=== PATIENT | female | born 1995 | race Two or more races ===

== ENCOUNTER 2024-11-23 07:16 | Inpatient (IN) | payer MEDICAID, OTHER ==
[~2024-11-23] VITALS: Ht 154.9 cm; Wt 90.0 kg
--- NOTE | 2024-11-23 07:38 | ED.PDOC ---
GI ASSESSMENT HPI Comments This is a 29 year-old female, with a PMHX HTN and pre-DM, presents to the ED via wheelchair with a chief complaint of RUQ abdominal pain as of 0500 this morning. Patient states abdominal pain as 10/10, "sharp", radiating to back, with no associated relieving factors. Patient states she has been taking Zepbound with Zofran for about X8 months for diagnosed pre-DM. Patient reports no previous history of abdominal pain and further denies associated symptoms of N/V/D, fever, chills, migraine, dizziness, or dysuria. Chief Complaint: Abdominal Pain Time Seen by MD: 07:25 Reviewed Notes: Medications, Allergies Allergies: Coded Allergies: Metoclopramide (Verified Allergy, Unknown, 11/23/24) Information Source: Patient Mode of Arrival: Wheelchair Timing: Hours Duration: Since onset Severity: Moderate Pain Location: RUQ Associated sign and symptoms: Abdominal Pain Past Medical History PAST MEDICAL HISTORY: DM, HTN Surgical History: Denies all surgeries JIRA ADMINISTRATOR History: No Pertinent JIRA ADMINISTRATOR History Family History Family History: Reviewed,noncontributory to illness, No family hx of Cancer, No family hx of DM, No family hx of Heart timmy, No family hx of HTN, No family hx ofKidney timmy, No family hx of Liver timmy, No family hx of Lung timmy, No family hx of Stroke Social History Smoker: Non-Smoker Alcohol: Denies ETOH Use Drugs: Denies Drug Use Lives In: Home Constitutional: denies: chills, diaphoresis, fatigue, fever, malaise, sweats, weakness, others EENTM: denies: blurred vision, double vision, ear bleeding, ear discharge, ear drainage, ear pain, ear ringing, eye pain, eye redness, hearing loss, mouth veronika n, mouth swelling, nasal discharge, nose bleeding, nose congestion, nose pain, photophobia, tearing, throat pain, throat swelling, voice changes, others Respiratory: denies: cough, hemoptysis, orthopnea, SOB at rest, shortness of breath, SOB with excertion, stridor, wheezing, others Cardiovascular: denies: chest pain, dizzy spells, diaphoresis, Dyspnea on exertion, edema, irregular heart beat, left arm pain, lightheadedness, palpitations, PND, syncope, others Gastrointestinal: reports: abdominal pain; denies: abdomen distended, blood streaked bowels, constipated, diarrhea, dysphagia, difficulty swallowing, hematemesis, melena, nausea, poor appetite, poor fluid intake, rectal bleeding, rectal pain, vomiting, others Genitourinary: denies: abnormal vagina bleeding, burning, dyspareunia, dysuria, flank pain, frequency, hematuria, incontinence, pain, , vagina discharge, urgency, others Neurological: denies: dizziness, fainting, headache, left sided numbness, left sided weakness, numbness, paresthesia, pre-existing deficit, right sided numbness, right sided weakness, seizure, speech problems, tingling, tremors, weakness, others Musculoskeletal: denies: back pain, gout, joint pain, joint swelling, muscle pain, muscle stiffness, neck pain, others Integumetry: denies: bruises, change in color, change in hair/nails, dryness, laceration, lesions, lumps, rash, wounds, others Allergic/Immunocompromised: denies: Difficulty Healing, Frequent Infections, Hives, Itching, others Hematologic/Lymphatic: denies: anemia, blood clots, easy bleeding, easy bruisin g, swollen glands, others Endocrine: denies: excessive hunger, excessive sweating, excessive thirst, excessive urination, flushing, intolerance to cold, intolerance to heat, unexplained weight gain, unexplained weight loss, others Psychiatric: denies: anxiety, bipolar disorder, depression, hopeless, panic disorder, schizophrenia, sleepless, suicidal, others All Other Systems: Reviewed and Negative Physical Exam General Appearance: Moderate Distress HEENT: Normal ENT Inspection, Pharynx Normal, TMs Normal Neck: Full Range of Motion, Non-Tender, Normal, Normal Inspection Respiratory: Chest Non-Tender, Lungs Clear, No Accessory Muscle Use, No Respiratory Distress, Normal Breath Sounds Cardiovascular: No Edema, No JVD, No Murmur, No Gallop, Normal Peripheral Pulses, Regular Rate/Rhythm Breast Exam: Deferred Gastrointestinal: No Organomegaly, Non Tender, No Pulsatile Mass, Normal Bowel Sounds, Soft Genitalia: Deferred Pelvic: Deferred Rectal: Deferred Extremities: No calf tenderness, Normal capillary refill, Normal inspection, Normal range of motion, Non-tender, No pedal edema Musculoskeletal : Apperance: Normal Neurologic: Alert, charge master analyst II-XII nml as Tested, No Motor Deficits, Normal Affect, Normal Mood, No Sensory Deficits Cerebellar Function: NOT DONE Reflexes: NOT DONE Skin: Dry, Normal Color, Warm Peripheral Pulses: 3+ Radial (R), 3+ Radial (L) Lymphatic: No Adenopathy Was a procedure done? Was a procedure done?: No GI differential Dx Differential Diagnosis: Constipation, Diverticular disease, Esophagitis, Gastritis/PUD, Gastroenteritis, Inflammatory BD, Pancreatitis, Dehydration, Diabetes/ DKA, Food Poisoning, , Bacterial, Parasitic, Viral X-Ray, Labs, Meds, VS Vital Signs Date Time Temp Pulse Resp B/P (MAP) Pulse Ox O2 Delivery O2 Flow Rate FiO2 11/23/24 07:19 98.2 99 18 111/67 100 98.2 Patient alert. Complaining of abdominal pain. Vitals stable. Answering questions. She does take weight loss medication. Establish intravenous access. Was given fluids. Was given morphine. Was given Zofran. Explained to the patient. Continue monitoring. Time of 1ST Reevaluation: 08:37 Reevaluation 1ST: Unchanged Patient Education/Counseling: Diagnosis, Treatment Family Education/Counseling: Diagnosis, Treatment SEPSIS Sepsis Screen Date sepsis recognized/suspect: Nov 23, 2024 Time Sepsis recognized/suspect: 717 Recent Procedure: No On Antibiotic Therapy: No Respiratory Rate >20: No Heart Rate >90: Yes Temp<36 C (96.8 F) or >38.3 C: No SBP <90 or MAP <65 mmHG: No New Acute Mental Status Change: No Is the patient on CPAP, BIPAP,: No Physician Orders Complete Blood Count (11/23/24 07:34) Urinalysis (11/23/24 07:34) Basic Metabolic Panel (11/23/24 07:34) Lipase (11/23/24 07:34) Bilirubin, Total (11/23/24 07:34) Morphine Sulfate Injection (11/23/24 07:45) Ondansetron Hcl (Zofran) (11/23/24 07:45) Sodium Chloride 0.9% (11/23/24 07:45) Vital Signs Date Time Temp Pulse Resp B/P (MAP) Pulse Ox O2 Delivery O2 Flow Rate FiO2 11/23/24 07:19 98.2 99 18 111/67 100 98.2 Departure 1 Departure Time of Disposition: 07:40 Impression: Primary Impression: Acute abdominal pain Disposition: ADMITTED INPATIENT Admit to: Med Surg Condition: Guarded Critical Care Note Critical Care Time?: No Stability Stability form required: No Heart Score Heart Score: Heart Score Response (Comments) Value History N/A 0 EKG N/A 0 Age N/A 0 Risk Factors N/A 0 Troponin N/A 0 Total 0 I personally scribed for RAJINDER BAEZ MD ([email or web address]) on 11/23/24 at 07:37. Electronically submitted by Deborah Rincon ([facility]). RAJINDER BAEZ MD Nov 23, 2024 07:37
[2024-11-23 08:07] LABS: Hematocrit 40.9 % (36.0-46.0); Hemoglobin 13.8 g/dL (12.2-16.2); Mean Corpuscular Hemoglobin 30.9 pg (28.0-32.0); Mean Corpuscular Volume 91.8 fL (80.0-100.0); Nucleated Red Blood Cells % 0.1 %
[2024-11-23 08:15] LABS: Chloride 106 mmol/L (98-107); Potassium 3.6 mmol/L (3.5-5.1); Sodium 140 mmol/L (136-145)
[2024-11-23 08:16] LABS: Anion Gap 10 (5-15); Calcium 9.2 mg/dL (8.7-10.4); Carbon Dioxide 24 mmol/L (20-31)
[2024-11-23 08:21] LABS: BUN/Creatinine Ratio 13.2 (10.0-20.0); Blood Urea Nitrogen 10 mg/dL (9-23)
[2024-11-23 08:22] LABS: Glucose 111 mg/dL (74-106)
[2024-11-23 08:23] LABS: Bilirubin, Total 0.6 mg/dL (0.2-1.0)
[2024-11-23 08:40] VITALS: PULSE 84; RESP 19; O2SAT 95
[2024-11-23] MEDS: ONDANSETRON HCL 4 MG/2 ML VIAL IV ONE (08:48)
[2024-11-23] MEDS: MORPHINE SULFATE 4 MG/ML SYR/VIAL IV ONE (08:49)
[2024-11-23] MEDS: SODIUM CHLORIDE 0.9% 1,000 ML IV ONE ×2 (08:51→10:53)
[2024-11-23 09:09] LABS: Lipase 42 U/L (12-53)
--- NOTE | 2024-11-23 09:10 | DVH ---
Exam: CT CT AB PEL WO CON-NO ORAL OR IV History: colitis Comparison Study: None Technique: Multidetector spiral CT of the abdomen was performed from lung bases to pubic symphysis. Imaging was performed without IV contrast. Axial, coronal and sagittal multiplanar reformats were ob tained from the axial data set by the technologist. Radiation Dose : 1. Abdomen/Pelvis: CTDIvol 21.23 mGy, DLP 21.23 mGy*cm. Findings: Evaluation of solid organs is limited due to lack of intravenous contrast use. Lung Bases: No acute or significant lung base finding. Normal heart size. No pleural or pericardial effusion. Liver: The liver is normal in size. No focal lesions. Gallbladder and Biliary Tree: Unremarkable Spleen: Unremarkable Pancreas: The pancreas is grossly normal in appearance. Adrenal Glands: Unremarkable Kidneys: Kidneys are grossly normal without calculi or hydronephrosis. Bladder: Grossly unremarkable for degree of distention. Bowel: The stomach is grossly normal in appearance. Small bowel and colon are normal in caliber and d istribution. The appendix is normal. Ascites: Absent Lymphadenopathy: No mesenteric, retroperitoneal or periportal lymphadenopathy. Abdominal Wall and Mesentery: Unremarkable. Vasculature: The visualized abdominal aorta is normal in size and caliber. Evaluation of abdominal a nd pelvic vessels is limited due to lack of intravenous contrast. Pelvic Organs: Unremarkable Musculoskeletal: No aggressive focal bony lesions, acute fractures or dislocation. IMPRESSION: 1. No acute abdominal or pelvic findings. Radiation optimization: All CT scans at this facility use at least one of these dose optimization farnaz hniques: automated exposure control mA and/or kV adjustment per patient size (includes targeted exam s where dose is matched to clinical indication) or iterative reconstruction.
[2024-11-23] MEDS ORDERED: DOCUSATE SOD 100 MG CAP PO PRN (10:00)
[2024-11-23] MEDS ORDERED: MORPHINE SULFATE INJ 2 MG/ml SYRG IV PRN (10:00)
[2024-11-23] MEDS ORDERED: METOCLOPRAMIDE HCL 5MG/ml INJ 2ml VIAL IV PRN (10:00)
[2024-11-23] MEDS ORDERED: ACETAMINOPHEN 325 MG TAB PO PRN (10:00)
[2024-11-23] MEDS ORDERED: ONDANSETRON HCL 4 MG/2 ML VIAL IV PRN (10:00)
[2024-11-23] MEDS: cefTRIAXone 1GM/50ML D5W 50 ML IV ONE (10:53)
--- NOTE | 2024-11-23 10:53 | DVH ---
EXAM DESCRIPTION: US GALLBLADDER CLINICAL HISTORY: pain COMPARISON: Same day CT abdomen pelvis TECHNIQUE: Using real-time ultrasonography multiple images of the abdomen were obtained. FINDINGS: The liver measures 15.1 cm. No focal liver masses. The liver echongenicity is within normal limits. The pancreas is obscured by shadowing bowel gas. Stones and sludge in the gallbladder. No gallbladder wall thickening. No pericholecystic fluid. Negat sara sonographic Salas sign. The common bile duct measures 4 mm in diameter. There is no free intraperitoneal fluid. The right kidney measures 9.2cm. No right renal calculi or hydronephrosis. IMPRESSION: 1. Cholelithiasis without evidence of acute cholecystitis.
[2024-11-23 10:57] LABS: Urine Protein, UAD Negative (Negative)
--- NOTE | 2024-11-23 11:19 | DVHHP2 ---
History of Present Illness Reason for Visit: Abdominal pain History of Present Illness Bri Garcia is a 29-year-old female with past medical history of pre-diabetes for which she takes and hypertension during that she is not currently taking any medications for, who came to the hospital for abdominal pain. Patient states she woke up about 0500 with RUQ abdominal pain that radiates around her back. She also began experiencing nausea and vomiting. She states she last ate last night about 2300 spicy Dutch food. Endocrine: Diabetes (Pre- diabetes) Past Surgical History: None Family History: None Smoke: No ALCOHOL: none Drugs: None Lives: with Family Review of Systems Constitutional: No: Fever, Chills, Sweats, Weakness, Malaise, Other Eyes: No: Pain, Vision change, Conjunctivae inflammation, Eyelid inflammation, Other, Redness ENT: No: Ear pain, Ear discharge, Nose pain, Nose discharge, Nose congestion, Mouth pain, Mouth swelling, Throat pain, Throat swelling, Other Respiratory: No: Cough, Dry, Shortness of breath, SOB with excertion, Wheezing, Hemoptysis, Pleuritic Pain, Sputum, Wheezing, Other Gastrointestinal: Nausea, Vomiting, Abdominal Pain (RUQ radiates to back); No: Diarrhea, Constipation, Melena, Hematochezia, Other Genitourinary: No Dysuria, No Frequency, No Incontinence, No Hematuria, No Retention, No Other Musculoskeletal: No: other, neck pain, shoulder pain, arm pain, back pain, hand pain, leg pain, foot pain Skin: No: Rash, Lesions, Jaundice, Bruising, Other Neurological: No: Weakness, Numbness, Incoordination, Change in speech, Confusion, Seizures, Other Allergies: Coded Allergies: Metoclopramide (Verified Allergy, Unknown, 11/23/24) Exam Vital Signs Vital Signs Date Time Temp Pulse Resp B/P (MAP) Pulse Ox O2 Delivery O2 Flow Rate FiO2 11/23/24 09:21 93 14 108/70 11/23/24 08:52 98.0 99 98.0 11/23/24 08:40 Room Air* 0 21 General Appearance: Alert, Oriented X3, Cooperative, mild distress HEENT: Atraumatic, PERRLA Respiratory: Clear to auscultation, Normal air movement Cardiovascular: Regular rate, Normal S1, Normal S2, No murmurs Abdominal: Normal bowel sounds, Soft, Other (tender on plapitation) Extremities: No clubbing, No cyanosis, No edema, Normal pulses, No tenderness/swelling Skin: No rashes, No breakdown, No significant lesion Neuro: Normal gait, Normal speech, Strength at 5/5 X4 ext Psych/Mental Status: Mental status NL, Mood NL Labs/Xrays Labs Test 11/23/24 07:50 Range/Units White Blood Count 12.7 H 4.4-10.8 10^3/uL Red Blood Count 4.46 4.0-5.20 10^6/uL Hemoglobin 13.8 12.2-16.2 g/dL Hematocrit 40.9 36.0-46.0 % Mean Corpuscular Volume 91.8 80.0-100.0 fL Mean Corpuscular Hemoglobin 30.9 28.0-32.0 pg Mean Corpuscular Hemoglobin Concent 33.6 32.0-36.0 g/dL Red Cell Distribution Width 13.6 11.8-14.3 % Platelet Count 321 140-450 10^3/uL Mean Platelet Volume 9.7 6.9-10.8 fL Neutrophils (%) (Auto) 81.3 H 37.0-80.0 % Lymphocytes (%) (Auto) 10.0 10.0-50.0 % Monocytes (%) (Auto) 7.2 0.0-12.0 % Eosinophils (%) (Auto) 1.2 0.0-7.0 % Basophils (%) (Auto) 0.3 0.0-2.0 % Neutrophils # (Auto) 10.3 H 1.6-8.6 10 ^3/uL Lymphocytes # (Auto) 1.3 0.4-5.4 10 ^3/uL Monocytes # (Auto) 0.9 0-1.3 10 ^3/uL Eosinophils # (Auto) 0.2 0-0.8 10 ^3/uL Basophils # (Auto) 0 0-0.2 10 ^3/uL Nucleated Red Blood Cells 0.1 % Sodium Level 140 136-145 mmol/L Potassium Level 3.6 3.5-5.1 mmol/L Chloride Level 106 98-107 mmol/L Carbon Dioxide Level 24 20-31 mmol/L Anion Gap 10 5-15 Blood Urea Nitrogen 10 9-23 mg/dL Creatinine 0.76 0.550-1.02 mg/dL Glomerular Filtration Rate Calc 107 >90 mL/min BUN/Creatinine Ratio 13.2 10.0-20.0 Serum Glucose 111 H 74-106 mg/dL Calcium Level 9.2 8.7-10.4 mg/dL Total Bilirubin 0.6 0.2-1.0 mg/dL Lipase 42 12-53 U/L Exam: CT CT AB PEL WO CON-NO ORAL OR IV Findings: Evaluation of solid organs is limited due to lack of intravenous contrast use. Lung Bases: No acute or significant lung base finding. Normal heart size. No pleural or pericardial effusion. Liver: The liver is normal in size. No focal lesions. Gallbladder and Biliary Tree: Unremarkable Spleen: Unremarkable Pancreas: The pancreas is grossly normal in appearance. Adrenal Glands: Unremarkable Kidneys: Kidneys are grossly normal without calculi or hydronephrosis. Bladder: Grossly unremarkable for degree of distention. Bowel: The stomach is grossly normal in appearance. Small bowel and colon are normal in caliber and distribution. The appendix is normal. Ascites: Absent Lymphadenopathy: No mesenteric, retroperitoneal or periportal lymphadenopathy. Abdominal Wall and Mesentery: Unremarkable. Vasculature: The visualized abdominal aorta is normal in size and caliber. Evaluation of abdominal and pelvic vessels is limited due to lack of intravenous contrast. Pelvic Organs: Unremarkable Musculoskeletal: No aggressive focal bony lesions, acute fractures or dislocation. IMPRESSION: 1. No acute abdominal or pelvic findings. SEPSIS Sepsis Screen Date sepsis recognized/suspect: Nov 23, 2024 Time Sepsis recognized/suspect: 0852 Recent Procedure: No On Antibiotic Therapy: No Respiratory Rate >20: No Heart Rate >90: No Temp<36 C (96.8 F) or >38.3 C: No SBP <90 or MAP <65 mmHG: No New Acute Mental Status Change: No Is the patient on CPAP, BIPAP,: No Physician Orders Urinalysis (11/23/24 07:34) Ct Ab Pel Wo Con-No Oral Or Iv (11/23/24 08:26) Metronidazole Ivpb Flagyl (11/23/24 14:00) Metoclopramide Injection (Reglan Injecti (11/23/24 10:00) Ceftriaxone Ivpb Rocephin (11/24/24 09:00) Ceftriaxone Ivpb Rocephin (11/23/24 10:00) NS (11/23/24 10:00) Test, Urine (11/23/24 09:50) Admit (11/23/24 09:50) Code Status (11/23/24 09:50) 2 Gm Sodium Diet (11/23/24 Lunch) Hydrocodone-Acet 5/325mg Tab ([place] 5/32 (11/23/24 10:00) Ondansetron Hcl (Zofran) (11/23/24 10:00) Docusate Sodium Capsule (Colace Capsule) (11/23/24 10:00) Complete Blood Count (11/24/24 04:00) Comprehensive Metabolic Panel (11/24/24 04:00) Condition: Serious (11/23/24 09:50) Acetaminophen Tablet (Tylenol Tablet) (11/23/24 10:00) Morphine Sulfate Injection (11/23/24 10:00) Vital Signs Date Time Temp Pulse Resp B/P (MAP) Pulse Ox O2 Delivery O2 Flow Rate FiO2 11/23/24 09:21 93 14 108/70 11/23/24 08:52 98.0 95 18 112/68 (83) 99 98.0 11/23/24 08:49 95 14 112/68 11/23/24 08:40 84 19 95 Room Air* 0 21 11/23/24 07:19 98.2 99 18 111/67 100 98.2 Laboratory Tests Test 11/23/24 07:50 White Blood Count 12.7 10^3/uL (4.4-10.8) H Medications Medications Dose Ordered Sig/Denia Route Start Time Stop Time Status Last Admin Dose Admin Morphine Sulfate 4 mg ONCE ONCE IV 11/23/24 07:45 11/23/24 07:46 DC 11/23/24 08:49 4 MG Ondansetron HCl 4 mg ONCE ONCE IV 11/23/24 07:45 11/23/24 07:46 DC 11/23/24 08:48 4 MG Sodium Chloride 1,000 ml @ 1,000 mls/hr Q1H ONCE IV 11/23/24 07:45 11/23/24 08:44 DC 11/23/24 08:51 1,000 MLS/HR Assessment/Plan Assessment/Plan Assessment: Possible gastritis, Leukocytosis, Intractable abdominal pain, Intractable nausea and vomiting, Plan: Admit to Med-Surg, IV antibiotics, IV hydration, Gallbladder ultrasound, PRN antiemetics, Possible HIDA scan, Plan discussed with: Patient, Spouse My Orders Orders - JAYE SERRATO Procedure Category Date Status Time Metronidazole Ivpb PHA 11/23/24 Verified Flagyl 14:00 Metoclopramide PHA 11/23/24 Verified Injection (Reglan 10:00 Ceftriaxone Ivpb PHA 11/24/24 Verified Rocephin 09:00 Ceftriaxone Ivpb PHA 11/23/24 Verified Rocephin 10:00 NS PHA 11/23/24 Verified 10:00 Test, Urine LAB 11/23/24 Verified 09:50 Admit ADMIT 11/23/24 Verified 09:50 Code Status CODE 11/23/24 Verified 09:50 2 Gm Sodium Diet DIET 11/23/24 Verified Lunch Hydrocodone-Acet PHA 11/23/24 Verified 5/325mg Tab ([place] 10:00 Ondansetron Hcl PHA 11/23/24 Verified (Zofran) 10:00 Docusate Sodium PHA 11/23/24 Verified Capsule (Colace 10:00 Complete Blood Count LAB 11/24/24 Verified 04:00 Comprehensive LAB 11/24/24 Verified Metabolic Panel 04:00 Condition: Serious ALEXANDER 11/23/24 Verified 09:50 Acetaminophen Tablet PHA 11/23/24 Verified (Tylenol Tablet) 10:00 Morphine Sulfate PHA 11/23/24 Verified Injection 10:00 Date of Service: Nov 23, 2024 Billing Provider: JAYE SERRATO Common Visit Codes: [id number] INP/OBS CARE (MOD) JAYE SERRATO Nov 23, 2024 11:19
[2024-11-23] MEDS: HYDROcodone-ACET 5/325MG TAB PO PRN (12:00)
[2024-11-23 13:30] VITALS: BP 113/85; PULSE 77; RESP 15; TEMP 98; O2SAT 98
[2024-11-24] MEDS ORDERED: cefTRIAXone 1GM/50ML D5W 50 ML IV SCH (09:00)
== END 2024-11-23 15:39 | disposition left against medical advice (07) ==
LOC: ER 07:16 → OVERFLOW 09:50
PROVIDERS: ADMIT Nurse Practitioner Family; ATTEND Nurse Practitioner Family
DX: K80.20 Calculus of gallbladder without cholecystitis without obstruction (principal); D72.829 Elevated white blood cell count, unspecified; K29.70 Gastritis, unspecified, without bleeding; I10 Essential (primary) hypertension; Z53.21 Procedure and treatment not carried out due to patient leaving prior to being seen by health care provider; Z88.8 Allergy status to other drugs, medicaments and biological substances
CPT/HCPCS: 36415; 74176; 76705; 80048; 81001; 81025; 82247; 83690; 85025; 96361; 96365; 96367; 96375; G0378; J2405; J3490

== ENCOUNTER 2025-02-20 16:01 | Emergency (ER) | payer MEDICAID ==
[~2025-02-20] VITALS: Ht 180.3 cm; Wt 81.8 kg
--- NOTE | 2025-02-20 16:48 | DVH ---
ULTRASOUND ABDOMEN, LIMITED RIGHT UPPER QUADRANT: REASON FOR EXAM: RUQ PAIN TECHNIQUE: Real-time sector scans in the transverse and longitudinal planes were obtained through th e right upper quadrant of the abdomen. FINDINGS: The liver is of normal size and contour. The liver is echogenic. There is predominantly he patopetal flow in the portal vein. There is no intrahepatic biliary ductal dilatation. The common b ile duct is not seen. There are a few mobile gallstones. There is no gallbladder wall thickening no r pericholecystic fluid. There is no sonographic Salas's sign. The pancreas is obscured by bowel gas. The right kidney measures 11.7 cm. No hydronephrosis or nephrolithiasis is identified. There is no evidence of right renal mass or cyst. The visualized portions of the abdominal aorta demonstrate no evidence of aneurysmal dilatation. The visualized inferior vena cava is unremarkable. There is no free fluid identified in the right upper quadrant. IMPRESSION: Cholelithiasis without signs of acute cholecystitis. No sonographic Salas's sign. Diffusely echogenic liver parenchyma. This may be secondary to steatosis or another diffuse hepatic process. Correlate clinically and with liver function tests.
[2025-02-20 16:51] VITALS: PULSE 70; RESP 18; O2SAT 97
[2025-02-20 16:57] LABS: Hematocrit 36.2 % (36.0-46.0); Hemoglobin 12.0 g/dL (12.2-16.2); Mean Corpuscular Hemoglobin 30.6 pg (28.0-32.0); Mean Corpuscular Volume 92.5 fL (80.0-100.0); Nucleated Red Blood Cells % 0.0 %
[2025-02-20] MEDS: SODIUM CHLORIDE 0.9% 1,000 ML IV ONE (17:08)
[2025-02-20 17:13] LABS: Alanine Aminotransferase 38 U/L (7-40); Alkaline Phosphatase 81 U/L (46-116); Anion Gap 7 (5-15); Carbon Dioxide 26 mmol/L (20-31); Glucose 90 mg/dL (74-106); Lipase 39 U/L (12-53); Potassium 3.6 mmol/L (3.5-5.1); Sodium 141 mmol/L (136-145); Total Protein 6.6 g/dL (5.7-8.2)
[2025-02-20 17:14] LABS: Albumin 3.8 g/dL (3.2-4.8); BUN/Creatinine Ratio 12.7 (10.0-20.0); Bilirubin, Total 0.5 mg/dL (0.2-1.0)
[2025-02-20 17:15] LABS: Blood Urea Nitrogen 7 mg/dL (9-23); Calcium 8.7 mg/dL (8.7-10.4); Chloride 108 mmol/L (98-107)
[2025-02-20] MEDS: ONDANSETRON HCL 4 MG/2 ML VIAL IV ONE (17:57)
[2025-02-20] MEDS: fentaNYL CITRATE 100 MCG/2 ML VL IV ONE ×2 (17:57→21:08)
[2025-02-20 19:30] VITALS: TEMP 98.6
[2025-02-20] MEDS: HYDROcodone-ACET 5/325MG TAB PO ONE (19:33)
[2025-02-20 19:35] LABS: Urine Amorphous Crystal FEW /hpf (None Seen); Urine Protein, UAD Negative (Negative)
[2025-02-20] MEDS: PANTOPRAZOLE 40 MG TAB PO ONE (19:52)
[2025-02-20] MEDS: SUCRALFATE 1 GM TAB PO ONE (19:52)
[2025-02-20] MEDS: LIDOCAINE VISCOUS 2% 15ML UD PO ONE (19:52)
[2025-02-20 20:54] VITALS: PULSE 61; RESP 13; O2SAT 100
[2025-02-20] MEDS ORDERED: ZOFR4T PO (22:02)
[2025-02-20] MEDS ORDERED: NITR-87 PO (22:02)
[2025-02-20 22:40] VITALS: BP 110/70; PULSE 72; RESP 16; O2SAT 95
--- NOTE | 2025-02-21 11:20 | ED.PDOC ---
GI ASSESSMENT HPI Comments HPI: This is a 29 year old female MEGAN presenting to the ED with chief complaint of abdominal pain. Patient reports that she has been experiencing RUQ abdominal pain since 1.5 hours ago with associated brown diarrhea yesterday. Patient relays that she had only eaten a croissant today. Patient states that she has history of gallstones 3 months ago, but no scheduled surgery is noted. EMS notes that the patient was provided 50mcg of Fentanyl, IV fluids, and Zofran en route to the ED. EMS reports patient had a BP of 90/50 after Fentanyl was given. Patient denies any nausea, vomiting, chest pain, SOB, fever, or chills. Past Medical History: DM, HTN, Gallstones Past Surgical History: None Social History: Denies ETOH, smoking, or drug use. Medications: Reviewed. Allergies: Metoclopramide [place]: RUQ PAIN, N NO VOMIT H/O GALLSTONES. Lidocaine patches, waiting for GI consultation. Denies HPI: Poor Historian. REVIEW OF SYSTEMS: CONSTITUTIONAL: Denies acute: fever, diaphoresis, chills, HEAD: Denies acute: headache, photophobia Eyes: Denies acute: Double vision, vision loss, eye pain, eye discharge. EARS: Denies acute: tinnitus, hearing loss, ear discharge, ear pain, THROAT: Denies acute: sore throat, swelling, difficulty swallowing , pain with swallowing, change in voice. NECK: Denies acute: neck pain, neck swelling, stiff neck. HEART: Denies acute : chest pain, palpitations, LUNGS: Denies acute: SOB, wheezing, cough, hemoptysis ABDOMEN: Denies acute: Vomiting, diarrhea, melena , hematemesis, hematochezia SKIN: Denies acute: rash, redness, lesions, itchiness. EXTREMITIES: Denies acute: calf pain, numbness, tingling, weakness, denies pain in extremity. Denies acute: Low back pain. Neuro: Denies acute: focal neurological deficit, motor or sensory focal neurological deficit, tremors, seizure like activity, confusion, dizziness, change in mental status, loss of bowel or bladder function, cauda equina like symptoms. : Denies acute: dysuria, hematuria, flank pain, increase in urinary frequency. PSYCH: Denies acute: hallucination, suicidal ideation, homicidal ideation. FEMALE: Denies acute: abnormal vaginal bleeding, foul odor, unusual discharge. PHYSICAL EXAM: General: ----moderate----acute distress, awake and alert. Head: normocephalic, atraumatic. Neck: supple, trachea is midline, no swelling. Throat: Normal phonation. Eyes:, no erythema, no purulent discharge, no proptosis, no icterus. Heart: regular rate, regular rhythm, no significant murmur appreciated. Lungs: no apparent respiratory distress, Able to speak in full sentences. No wheezing, no rhonchi, no crackles. No stridors Clear to auscultation bilaterally. Abdomen: Right upper quadrant tender to palpation, non distended, soft, no guarding, no rebound, + bowel sounds. Neuro: Awake, Alert, oriented to name, self, situation, follows commands GCS=15. Speech is normal. Skin: no petechia, no purpura, no cyanosis, non-pale, not jaundice. Lower extremities: --no - Pitting edema no deformity, no focal swelling, no calf TTP. Makes eye contact. moves all four extremities. Face: no apparent facial droop. ED COURSE: DISCLAIMER: This medical document was created using an electronic medical record system with voice recognition software and computerized dictation system. Although this document has been carefully reviewed, there might still be some phonetic and typographical errors. Occasional wrong-word or "sound-alike" substitutions may have occurred due to the inherent limitations of voice recognition software. These areas are purely typographical due to imperfections of the software programs and do not reflect any compromise in the patient's medical care. Please read the chart carefully and recognize, using context, where these substitutions have occurred. Chief Complaint: Abdominal Pain Time Seen by MD: 16:39 Reviewed Notes: Medications, Allergies Allergies: Coded Allergies: Metoclopramide (Verified Allergy, Unknown, 11/23/24) Home Meds Active Scripts Ondansetron Odt 4MG Tab (ZOFRAN PO) 4 Mg Tb, 4 MG PO Q8HPRN PRN for 3 Days, #9 TAB ODT TAB-DISSOLVE IN MOUTH, THEN SWALLOW Prov:ADOLPH ROJAS DO 02/20/25 Nitrofurantoin Monohydrate Mac (Macrobid) 100 Mg Cap, 100 MG PO BID for 7 Days, #14 CAP Prov:ADOLPH ROJAS DO 02/20/25 Information Source: Patient, Emergency Med Personnel Mode of Arrival: EMS Was a procedure done? Was a procedure done?: No GI differential Dx Differential Diagnosis: Other (DDX include Diverticulitis, colitis, gastroenteritis, acute abdomen, SBO, enteritis, constipation, volvulus, appen dicitis, Gallbladder disease, choledocolithiasis, ascending cholangitis, pancreatitis, intraAbdominal mass/neoplasm, hepatitis, UTI, pylonephritis, kidney stone, aneurysm, dissection, Inflammatory bowel disease, gastroparesis, ischemic bowel,,,,,,ovarian torsion, ovarian cyst/mass, tubo-ovarian abscess, , ectopic , PID, STD.) X-Ray, Labs, Meds, VS Vital Signs Date Time Temp Pulse Resp B/P (MAP) Pulse Ox O2 Delivery O2 Flow Rate FiO2 02/20/25 22:40 72 16 110/70 (83) 95 02/20/25 21:08 106/65 02/20/25 21:00 62 12 103/64 (77) 98 02/20/25 20:54 61 13 100 Room Air* 0 21 02/20/25 20:00 81 02/20/25 19:30 98.6 65 15 117/79 (92) 100 98.6 02/20/25 18:00 98.4 75 18 108/68 (81) 99 98.4 02/20/25 17:00 97 Room Air* 0 21 02/20/25 16:51 70 18 97 Room Air* 0 21 02/20/25 16:07 98.1 75 24 90/50 99 98.1 02/20/25 16:07 98.1 75 24 90/50 (63) 99 98.1 Lab Test 02/20/25 19:10 02/20/25 16:34 Range/Units Urine Color Colorless Yellow Urine Clarity Clear Clear Urine pH 7.0 5.0-9.0 Urine Specific [place] 1.007 1.001-1.035 Urine Protein Negative Negative Urine Ketones Negative Negative Urine Blood Negative Negative /uL Urine Nitrite Negative Negative Urine Bilirubin Negative Negative Urine Urobilinogen Normal Negative mg/dL Urine Leukocyte Esterase 2+ Negative /uL Urine RBC 1 0 - 4 /hpf Urine Microscopic WBC 4 0-5 /HPF Urine Squamous Epithelial Cells Few <5 /hpf Urine Amorphous Crystals Few None Seen /hpf Urine Bacteria Few H None Seen /hpf Urine Mucus Few None Seen Urine Glucose Normal Normal mg/dL White Blood Count 10.7 4.4-10.8 10^3/uL Red Blood Count 3.92 L 4.0-5.20 10^6/uL Hemoglobin 12.0 L 12.2-16.2 g/dL Hematocrit 36.2 36.0-46.0 % Mean Corpuscular Volume 92.5 80.0-100.0 fL Mean Corpuscular Hemoglobin 30.6 28.0-32.0 pg Mean Corpuscular Hemoglobin Concent 33.1 32.0-36.0 g/dL Red Cell Distribution Width 13.5 11.8-14.3 % Platelet Count 260 140-450 10^3/uL Mean Platelet Volume 9.8 6.9-10.8 fL Neutrophils (%) (Auto) 81.8 H 37.0-80.0 % Lymphocytes (%) (Auto) 8.7 L 10.0-50.0 % Monocytes (%) (Auto) 8.6 0.0-12.0 % Eosinophils (%) (Auto) 0.7 0.0-7.0 % Basophils (%) (Auto) 0.2 0.0-2.0 % Neutrophils # (Auto) 8.8 H 1.6-8.6 10 ^3/uL Lymphocytes # (Auto) 0.9 0.4-5.4 10 ^3/uL Monocytes # (Auto) 0.9 0-1.3 10 ^3/uL Eosinophils # (Auto) 0.1 0-0.8 10 ^3/uL Basophils # (Auto) 0 0-0.2 10 ^3/uL Nucleated Red Blood Cells 0.0 % Sodium Level 141 136-145 mmol/L Potassium Level 3.6 3.5-5.1 mmol/L Chloride Level 108 H 98-107 mmol/L Carbon Dioxide Level 26 20-31 mmol/L Anion Gap 7 5-15 Blood Urea Nitrogen 7 L 9-23 mg/dL Creatinine 0.55 0.550-1.02 mg/dL Glomerular Filtration Rate Calc 126 >90 mL/min BUN/Creatinine Ratio 12.7 10.0-20.0 Serum Glucose 90 74-106 mg/dL Lactic Acid Level 0.8 0.4-2.0 mmol/L Calcium Level 8.7 8.7-10.4 mg/dL Total Bilirubin 0.5 0.2-1.0 mg/dL Aspartate Amino Transferase (AST) 100 H 13-40 U/L Alanine Aminotransferase (ALT) 38 7-40 U/L Alkaline Phosphatase 81 46-116 U/L Total Protein 6.6 5.7-8.2 g/dL Albumin 3.8 3.2-4.8 g/dL Lipase 39 12-53 U/L Current Medications Medications (Trade) Dose Ordered Sig/Denia Route Start Time Stop Time Status Last Admin Sucralfate (Carafate Tab) 1 gm ONCE ONCE PO 02/20/25 19:45 02/20/25 19:46 DC 02/20/25 19:52 Pantoprazole Sodium (Protonix Tablet) 40 mg ONCE ONCE PO 02/20/25 19:45 02/20/25 19:46 DC 02/20/25 19:52 Lidocaine HCl (Xylocaine 2% Viscous) 10 ml ONCE ONCE PO 02/20/25 19:45 02/20/25 19:46 DC 02/20/25 19:52 Fentanyl Citrate 50 mcg ONCE ONCE IV 02/20/25 21:00 02/20/25 21:01 DC 02/20/25 21:08 [place] [address] Ph: [phone] DIAGNOSTIC IMAGING Diagnostic Imaging Report : [id number] Signed PATIENT: MELINDA CHAVIS RACCT: [id number] UNIT: [id number] : 1995 LOC: ER ROOM / BED: / AGE / SEX: 29 / F ADM STATUS: REG ER SERVICE [id number] ORDERING PHYSICIAN: ADOLPH ROJAS DO PROCEDURE(s): ABDL - ABDOMEN LIMITED REASON: RUQ PAIN ORDER NUMBER(s): [id number], ACCESSION NUMBER(s): [id number] ULTRASOUND ABDOMEN, LIMITED RIGHT UPPER QUADRANT: REASON FOR EXAM: RUQ PAIN TECHNIQUE: Real-time sector scans in the transverse and longitudinal planes were obtained through the right upper quadrant of the abdomen. FINDINGS: The liver is of normal size and contour. The liver is echogenic. There is predominantly hepatopetal flow in the portal vein. There is no intrahepatic biliary ductal dilatation. The common bile duct is not seen. There are a few mobile gallstones. There is no gallbladder wall thickening nor pericholecystic fluid. There is no sonographic Salas's sign. The pancreas is obscured by bowel gas. The right kidney measures 11.7 cm. No hydronephrosis or nephrolithiasis is identified. There is no evidence of right renal mass or cyst. The visualized portions of the abdominal aorta demonstrate no evidence of aneurysmal dilatation. The visualized inferior vena cava is unremarkable. There is no free fluid identified in the right upper quadrant. IMPRESSION: Cholelithiasis without signs of acute cholecystitis. No sonographic Salas's sign. Diffusely echogenic liver parenchyma. This may be secondary to steatosis or another diffuse hepatic process. Correlate clinically and with liver function tests. ATED BY: ORLANDO BROWN MD DICTATED DATE/TIME: 02/20/251644 SIGNED BY: ORLANDO BROWN MD SIGNED DATE/TIME: 02/20/251644 CC: Time of 1ST Reevaluation: 19:38 Reevaluation 1ST: Unchanged Time of 2ND Reevaluation: 19:01 Reevaluation 2ND: Improved Patient Education/Counseling: Diagnosis, Treatment Family Education/Counseling: No Family Present Comments MDM: patient presented with the above HPI.-abdominal pain----workup was initia tripp. patient was found with the above mentioned diagnosis. the following medications were ordered: please refer to order lists of meds and tests obtained by myself Dr. Rojas. Patient ED course and VS have been stabilized. Patient has been reassessed in the ED and remained in a stable condition. Pertinent incidental findings were discussed with the patient and/or family. Patient/family voices understanding and is agreeable with plan. Patient has been observed in the ED adequate length of time to insure improvement/stability. Escalation of care considered: Consideration of escalation to observation or admission Patient has a appointment coming up with the Gastroenterology. Patient was DISCHARGED home in a stable condition. All the reports of any imaging studies that were ordered by myself were reviewed by myself. Departure 1 Departure Time of Disposition: 17:08 Impression: Primary Impression: Cholelithiasis Additional Impressions: Abdominal pain UTI (urinary tract infection) Disposition: HOME / SELF CARE / HOMELESS Condition: Stable Additional Instructions: Additional instructions: Please read all instructions provided in this packet carefully. You MUST follow-up with your primary care/family doctor in 1 to 2 days. If you are unable to see your primary care/family doctor, please return to our emergency room for re-assessment and re-evaluation in 1 to 2 days. Return to the emergency room here in our facility or to the nearest ER [facility] if your symptoms change or worsen. CONSULTATIONS: you MUST Follow-up for consultation as soon as possible with: --gastroenterology in 1-2 days. Please call for appointment. You MUST call the consultants office yourself to make an appointment. You may need to arrange that through your insurance and/or your primary/family doctor. If you are unable to see the bi consultant in 1 to 2 days, you must return to our emergency room (or any other ER of your choice) for re-assessment and re-evaluation. Adequate fluid hydration. Although you have been discharged from the Emergency Department, this does not mean that you have a "clean bill of health". No definitive diagnosis for your symptoms has been made today. It is possible that you are in the process of developing a serious illness. This is why you must return to the ED without fail if any new or worsening symptoms develop. Avoid fatty greasy spicy food. Avoid caffeinated products. Avoid NSAIDs. Below is a copy of your radiological report for follow up: [place] [address] Ph: [phone] DIAGNOSTIC IMAGING Diagnostic Imaging Report : [id number] Signed PATIENT: MELINDA CHAVIS ACCT: [id number] UNIT: [id number] : 1995 LOC: ER ROOM / BED: / AGE / SEX: 29 / F ADM STATUS: REG ER SERVICE 1313 ORDERING PHYSICIAN: ADOLPH ROJAS DO PROCEDURE(s): ABDL - ABDOMEN LIMITED REASON: RUQ PAIN ORDER NUMBER(s): [id number], ACCESSION NUMBER(s): [id number] ULTRASOUND ABDOMEN, LIMITED RIGHT UPPER QUADRANT: REASON FOR EXAM: RUQ PAIN TECHNIQUE: Real-time sector scans in the transverse and longitudinal planes were obtained through the right upper quadrant of the abdomen. FINDINGS: The liver is of normal size and contour. The liver is echogenic. There is predominantly hepatopetal flow in the portal vein. There is no intrahepatic biliary ductal dilatation. The common bile duct is not seen. There are a few mobile gallstones. There is no gallbladder wall thickening nor pericholecystic fluid. There is no sonographic Salas's sign. The pancreas is obscured by bowel gas. The right kidney measures 11.7 cm. No hydronephrosis or nephrolithiasis is identified. There is no evidence of right renal mass or cyst. The visualized portions of the abdominal aorta demonstrate no evidence of aneurysmal dilatation. The visualized inferior vena cava is unremarkable. There is no free fluid identified in the right upper quadrant. IMPRESSION: Cholelithiasis without signs of acute cholecystitis. No sonographic Salas's sign. Diffusely echogenic liver parenchyma. This may be secondary to steatosis or an other diffuse hepatic process. Correlate clinically and with liver function tests. ATED BY: ORLANDO BROWN MD DICTATED DATE/TIME: 02/20/251644 SIGNED BY: ORLANDO BROWN MD SIGNED DATE/TIME: 02/20/251644 CC: e-Prescriptions Ondansetron Odt 4MG Tab (ZOFRAN PO) 4 Mg Tb 4 MG PO Q8HPRN PRN for 3 Days, #9 TAB ODT TAB-DISSOLVE IN MOUTH, THEN SWALLOW Prov: ADOLPH ROJAS DO 02/20/25 Nitrofurantoin Monohydrate Mac (Macrobid) 100 Mg Cap 100 MG PO BID for 7 Days, #14 CAP Prov: ADOLPH ROJAS DO 02/20/25 Discharged With: Self Critical Care Note Critical Care Time?: No I personally scribed for ADOLPH ROJAS DO ([email or web address]) on 02/20/25 at 16:49. Electronically submitted by Trino Eric ([email or web address]). I personally scribed for ADOLPH ROJAS DO ([email or web address]) on 02/20/25 at 19:28. Electronically submitted by Amrik Cruz ([email or web address]). ADOLPH ROJAS DO Feb 20, 2025 16:49
== END 2025-02-20 22:45 | disposition home or self-care (01) ==
LOC: EDBD 16:01 → EDUNIT# 16:01 → ER 16:01
DX: K80.20 Calculus of gallbladder without cholecystitis without obstruction (principal); N39.0 Urinary tract infection, site not specified; R10.11 Right upper quadrant pain; E11.9 Type 2 diabetes mellitus without complications; I10 Essential (primary) hypertension; Z79.899 Other long term (current) drug therapy
CPT/HCPCS: 36415; 76705; 80053; 81001; 83605; 83690; 85025; 96361; 96374; 96375; 99285; J2405; J3010; J7030

== ENCOUNTER 2025-02-27 15:56 | Inpatient (IN) | payer MEDICAID ==
[~2025-02-27] VITALS: Ht 154.9 cm; Wt 95.2 kg
[~2025-02-27 15:56] MED LIST: NITR-87 PO; ZOFR4T PO
[2025-02-27 16:15] VITALS: PULSE 61; RESP 17; O2SAT 100
--- NOTE | 2025-02-27 16:31 | ED.PDOC ---
GI ASSESSMENT HPI Comments 29 y/o F, with PMHx of gallstones, DM, and HTN presents to the ED for CC of abdominal pain. Patient states, she has been experiencing intermittent RUQ abdominal pain with associated nausea and vomiting [id number]. Patient reports, she has had issues with her gallbladder and refused surgery multiple times d/t fear and symptoms have now exacerbated. Patient relays, that she was seen at [facility] and was DC home with no significant findings. In route to the ED, patient was given 50mcgs of Fentanyl by EMS; endorses no relief of symptoms. At this time patient c/o 10/10 abdominal pain that is now diffuse. Patient denies hematochezia, melena, fever, or palpitations. Chief Complaint: Abdominal Pain Time Seen by MD: 16:00 Reviewed Notes: Nurses Notes, Ceo Na Notes, Medications, Allergies Allergies: Coded Allergies: Metoclopramide (Verified Allergy, Unknown, 11/23/24) Home Meds Active Scripts Ondansetron Odt 4MG Tab (ZOFRAN PO) 4 Mg Tb, 4 MG PO Q8HPRN PRN for 3 Days, #9 TAB ODT TAB-DISSOLVE IN MOUTH, THEN SWALLOW Prov:ADOLPH ROJAS DO 02/20/25 Nitrofurantoin Monohydrate Mac (Macrobid) 100 Mg Cap, 100 MG PO BID for 7 Days, #14 CAP Prov:ADOLPH ROJAS DO 02/20/25 Information Source: Patient, Emergency Med Personnel Mode of Arrival: EMS Timing: Months Duration: Intermittent Prehospital treatment: None Vomitus: None Stool: Normal Severity: Moderate Recent: None Recent Hx of: None Pain Location: RUQ Modifying Factors: Nothing Associated sign and symptoms: Nausea, Vomiting, Abdominal Pain Past Medical History PAST MEDICAL HISTORY: DM, HTN Surgical History: Denies all surgeries MOLD SHEET CLEANER History: No Pertinent MOLD SHEET CLEANER History Family History Family History: Reviewed,noncontributory to illness, No family hx of Cancer, No family hx of DM, No family hx of Heart timmy, No family hx of HTN, No family hx ofKidney timmy, No family hx of Liver timmy, No family hx of Lung timmy, No family hx of Stroke Social History Smoker: Non-Smoker Alcohol: Denies ETOH Use Drugs: Denies Drug Use Lives In: Home Constitutional: denies: chills, diaphoresis, fatigue, fever, malaise, sweats, weakness, others EENTM: denies: blurred vision, double vision, ear bleeding, ear discharge, ear drainage, ear pain, ear ringing, eye pain, eye redness, hearing loss, mouth pain, mouth swelling, nasal discharge, nose bleeding, nose congestion, nose pain, photophobia, tearing, throat pain, throat swelling, voice changes, others Respiratory: denies: cough, hemoptysis, orthopnea, SOB at rest, shortness of breath, SOB with excertion, stridor, wheezing, others Cardiovascular: denies: chest pain, dizzy spells, diaphoresis, Dyspnea on exertion, edema, irregular heart beat, left arm pain, lightheadedness, palpitations, PND, syncope, others Gastrointestinal: reports: abdominal pain, nausea, vomiting; denies: abdomen distended, blood streaked bowels, constipated, diarrhea, dysphagia, difficulty swallowing, hematemesis, melena, poor appetite, poor fluid intake, rectal bleeding, rectal pain, others Genitourinary: denies: abnormal vagina bleeding, burning, dyspareunia, dysuria, flank pain, frequency, hematuria, incontinence, pain, , vagina discharge, urgency, others Neurological: denies: dizziness, fainting, headache, left sided numbness, left sided weakness, numbness, paresthesia, pre-existing deficit, right sided numbness, right sided weakness, seizure, speech problems, tingling, tremors, weakness, others Musculoskeletal: denies: back pain, gout, joint pain, joint swelling, muscle pain, muscle stiffness, neck pain, others Integumetry: denies: bruises, change in color, change in hair/nails, dryness, laceration, lesions, lumps, rash, wounds, others Allergic/Immunocompromised: denies: Difficulty Healing, Frequent Infections, Hives, Itching, others Hematologic/Lymphatic: denies: anemia, blood clots, easy bleeding, easy bruising, swollen glands, others Endocrine: denies: excessive hunger, excessive sweating, excessive thirst, excessive urination, flushing, intolerance to cold, intolerance to heat, unexplained weight gain, unexplained weight loss, others Psychiatric: denies: anxiety, bipolar disorder, depression, hopeless, panic disorder, schizophrenia, sleepless, suicidal, others All Other Systems: Reviewed and Negative Physical Exam General Appearance: Moderate Distress, Obese HEENT: Normal ENT Inspection, Pharynx Normal, TMs Normal Neck: Full Range of Motion, Non-Tender, Normal, Normal Inspection Respiratory: Chest Non-Tender, Lungs Clear, No Accessory Muscle Use, No Respir atory Distress, Normal Breath Sounds Cardiovascular: No Edema, No JVD, No Murmur, No Gallop, Normal Peripheral Pulses, Regular Rate/Rhythm Breast Exam: Deferred Gastrointestinal: Epigastric, No Organomegaly, Normal Bowel Sounds, Soft, Tenderness Genitalia: Deferred Pelvic: Deferred Rectal: Deferred Extremities: No calf tenderness, Normal capillary refill, Normal inspection, Normal range of motion, Non-tender, No pedal edema Musculoskeletal : Apperance: Normal Neurologic: Alert, security patrol officer II-XII nml as Tested, No Motor Deficits, Normal Affect, Normal Mood, No Sensory Deficits Cerebellar Function: Normal Reflexes: Normal Skin: Dry, Normal Color, Warm Lymphatic: No Adenopathy Was a procedure done? Was a procedure done?: No GI differential Dx Differential Diagnosis: Cholangitis, Cholecystitis, Gastroenteritis X-Ray, Labs, Meds, VS Vital Signs Date Time Temp Pulse Resp B/P (MAP) Pulse Ox O2 Delivery O2 Flow Rate FiO2 02/27/25 18:03 68 16 111/69 02/27/25 17:03 77 13 102/59 02/27/25 16:01 97.5 60 18 93/65 100 97.5 Lab Test 02/27/25 16:43 Range/Units White Blood Count 14.6 H 4.4-10.8 10^3/uL Red Blood Count 4.08 4.0-5.20 10^6/uL Hemoglobin 12.5 12.2-16.2 g/dL Hematocrit 37.8 36.0-46.0 % Mean Corpuscular Volume 92.7 80.0-100.0 fL Mean Corpuscular Hemoglobin 30.6 28.0-32.0 pg Mean Corpuscular Hemoglobin Concent 33.0 32.0-36.0 g/dL Red Cell Distribution Width 13.7 11.8-14.3 % Platelet Count 280 140-450 10^3/uL Mean Platelet Volume 10.1 6.9-10.8 fL Neutrophils (%) (Auto) 86.7 H 37.0-80.0 % Lymphocytes (%) (Auto) 6.5 L 10.0-50.0 % Monocytes (%) (Auto) 6.1 0.0-12.0 % Eosinophils (%) (Auto) 0.5 0.0-7.0 % Basophils (%) (Auto) 0.2 0.0-2.0 % Neutrophils # (Auto) 12.7 H 1.6-8.6 10 ^3/uL Lymphocytes # (Auto) 0.9 0.4-5.4 10 ^3/uL Monocytes # (Auto) 0.9 0-1.3 10 ^3/uL Eosinophils # (Auto) 0.1 0-0.8 10 ^3/uL Basophils # (Auto) 0 0-0.2 10 ^3/uL Nucleated Red Blood Cells 0.0 % Sodium Level 141 136-145 mmol/L Potassium Level 3.5 3.5-5.1 mmol/L Chloride Level 108 H 98-107 mmol/L Carbon Dioxide Level 24 20-31 mmol/L Anion Gap 9 5-15 Blood Urea Nitrogen 8 L 9-23 mg/dL Creatinine 0.65 0.550-1.02 mg/dL Glomerular Filtration Rate Calc 121 >90 mL/min BUN/Creatinine Ratio 12.3 10.0-20.0 Serum Glucose 95 74-106 mg/dL Calcium Level 9.1 8.7-10.4 mg/dL Total Bilirubin 0.8 0.2-1.0 mg/dL Aspartate Amino Transferase (AST) 126 H 13-40 U/L Alanine Aminotransferase (ALT) 44 H 7-40 U/L Alkaline Phosphatase 82 46-116 U/L Total Protein 7.3 5.7-8.2 g/dL Albumin 4.1 3.2-4.8 g/dL Lipase 39 12-53 U/L Current Medications Medications (Trade) Dose Ordered Sig/Denia Route Start Time Stop Time Status Last Admin Ondansetron HCl (Zofran) 4 mg ONCE ONCE IV 02/27/25 16:30 02/27/25 16:31 DC 02/27/25 17:01 Hydromorphone HCl (Dilaudid Injection) 1 mg ONCE ONCE IV 02/27/25 16:30 02/27/25 16:31 DC 02/27/25 17:03 Sodium Chloride 1,000 ml @ 1,000 mls/hr Q1H ONCE IVB 02/27/25 16:30 02/27/25 17:29 DC 02/27/25 17:00 Pantoprazole Sodium (Protonix) 40 mg ONCE ONCE IV 02/27/25 16:30 02/27/25 16:31 DC 02/27/25 17:01 Ultrasound of the gallbladder shows: IMPRESSION: 1. Cholelithiasis and negative ultrasonic syed's sign. 2. Liver measures 15.7 cm in length with parenchymal changes consistent with steatosis. 3. Right kidney appears normal. The CBC shows an elevated white blood cell count of 14.6 IV Hep-Lock was established The patient was given Dilaudid 1 mg IV push The patient was given Zofran 4 mg IV push Patient is given Protonix 40 mg IV push Images Reviewed?: Images reviewed and evaluated by me Time of 1ST Reevaluation: 16:30 Reevaluation 1ST: Unchanged Patient Education/Counseling: Diagnosis, Treatment, Prognosis Family Education/Counseling: No Family Present SEPSIS Sepsis Screen Date sepsis recognized/suspect: Feb 27, 2025 Time Sepsis recognized/suspect: 1604 Recent Procedure: No On Antibiotic Therapy: No Respiratory Rate >20: No Heart Rate >90: No Temp<36 C (96.8 F) or >38.3 C: No SBP <90 or MAP <65 mmHG: No New Acute Mental Status Change: No Is the patient on CPAP, BIPAP,: No Physician Orders Urinalysis (02/27/25 16:16) Heplock Iv (02/27/25 16:16) Food Writer (02/27/25 16:16) Blood Pressure (02/27/25 16:16) Pulse Oximetry (02/27/25 16:16) Gallbladder (02/27/25 16:16) Vital Signs Date Time Temp Pulse Resp B/P (MAP) Pulse Ox O2 Delivery O2 Flow Rate FiO2 02/27/25 18:03 68 16 111/69 02/27/25 17:03 77 13 102/59 02/27/25 16:01 97.5 60 18 93/65 100 97.5 Laboratory Tests Test 02/27/25 16:43 White Blood Count 14.6 10^3/uL (4.4-10.8) H Medications Medications Dose Ordered Sig/Denia Route Start Time Stop Time Status Last Admin Dose Admin Hydromorphone HCl 1 mg ONCE ONCE IV 02/27/25 16:30 02/27/25 16:31 DC 02/27/25 17:03 Ondansetron HCl 4 mg ONCE ONCE IV 02/27/25 16:30 02/27/25 16:31 DC 02/27/25 17:01 Pantoprazole Sodium 40 mg ONCE ONCE IV 02/27/25 16:30 02/27/25 16:31 DC 02/27/25 17:01 Sodium Chloride 1,000 ml @ 1,000 mls/hr Q1H ONCE IVB 02/27/25 16:30 02/27/25 17:29 DC 02/27/25 17:00 Departure 1 Departure Time of Disposition: 17:14 Impression: Primary Impression: Intractable abdominal pain Additional Impression: Cholelithiasis Qualified Codes: K80.20 - Calculus of gallbladder without cholecystitis without obstruction Disposition: ADMITTED INPATIENT Admit to: Med Surg Condition: Fair Critical Care Note Critical Care Time?: No Stability Stability form required: Yes Unstable for transfer: ED Physician Assesment (Clinical assesment) Heart Score Heart Score: Heart Score Response (Comments) Value History N/A 0 EKG N/A 0 Age N/A 0 Risk Factors N/A 0 Troponin N/A 0 Total 0 I personally scribed for AMBERLY LEE MD ([email or web address]) on 02/27/25 at 16:31. E lectronically submitted by Celeste Wyatt ([email or web address]). I personally scribed for AMBERLY LEE MD ([email or web address]) on 02/27/25 at 17:23. Doris ctronically submitted by Celeste Wyatt [email or web address]). AMBERLY LEE MD Feb 27, 2025 16:31
[2025-02-27 16:58] LABS: Hematocrit 37.8 % (36.0-46.0); Hemoglobin 12.5 g/dL (12.2-16.2); Mean Corpuscular Hemoglobin 30.6 pg (28.0-32.0); Mean Corpuscular Volume 92.7 fL (80.0-100.0); Nucleated Red Blood Cells % 0.0 %
[2025-02-27] MEDS: SODIUM CHLORIDE 0.9% 1,000 ML IVB ONE (17:00)
[2025-02-27] MEDS: PANTOPRAZOLE 40 MG/10 ML VIAL INJ IV ONE ×2 (17:01→22:32)
[2025-02-27] MEDS: ONDANSETRON HCL 4 MG/2 ML VIAL IV ONE (17:01)
[2025-02-27] MEDS: HYDROmorphone HCL 2 MG/ML VL/or syr IV ONE (17:03)
--- NOTE | 2025-02-27 17:07 | DVH ---
INDICATION: pain TECHNIQUE: Multiple real-time sonographic images of the abdomen were obtained. COMPARISON: US ABDOMEN LIMITED on DOS: 02/20/25, US GALLBLADDER on DOS: 11/23/24 FINDINGS: The liver is homogenous demonstrates echogenicity consistent with steatosis.. The liver measures 15.69 cm. No intrahepatic biliary ductal dilatation is noted. Hepatopetal portal flow The gallbladder wall measures 0.16 cm and is unremarkable. Gallstones noted in the gallbladder.. The common duct measures 0.43 cm and is unremarkable. No pericholecystic fluid is noted. Negative sonographic Salas's sign The right kidney measures 10.74 cm. No hydronephrosis. The pancreas is not well visualized due to obscuration from bowel gas. The visualized portions of the IVC and aorta are grossly unremarkable. IMPRESSION: 1. Cholelithiasis and negative ultrasonic salas's sign. 2. Liver measures 15.7 cm in length with parenchymal changes consistent with steatosis. 3. Right kidney appears normal.
[2025-02-27 17:16] LABS: Albumin 4.1 g/dL (3.2-4.8); Alkaline Phosphatase 82 U/L (46-116); Anion Gap 9 (5-15); BUN/Creatinine Ratio 12.3 (10.0-20.0); Calcium 9.1 mg/dL (8.7-10.4); Carbon Dioxide 24 mmol/L (20-31); Glucose 95 mg/dL (74-106); Lipase 39 U/L (12-53); Potassium 3.5 mmol/L (3.5-5.1); Sodium 141 mmol/L (136-145); Total Protein 7.3 g/dL (5.7-8.2)
[2025-02-27 17:17] LABS: Bilirubin, Total 0.8 mg/dL (0.2-1.0)
[2025-02-27 17:20] LABS: Alanine Aminotransferase 44 U/L (7-40); Blood Urea Nitrogen 8 mg/dL (9-23); Chloride 108 mmol/L (98-107)
[2025-02-27 20:32] VITALS: PULSE 66; RESP 18; O2SAT 100
[2025-02-27 21:17] LABS: Urine Protein, UAD Negative (Negative)
--- NOTE | 2025-02-27 21:43 | DVHHPRES ---
History of Present Illness Resident Creating Document: SKYLER MERCADO History of Present Illness Patient is a 29-year-old female with past medical history of prediabetes, migraine, presented to [facility] ED with complaint of abdominal pain. The pain was described as a pressure-like pain that began today at 1:00 PM. The patient reports experiencing intermittent right upper quadrant abdominal pain associated with dizziness, nausea and vomiting for the past four months. She states she has had ongoing gallbladder issues and has refused surgery multiple times due to fear. Her symptoms have now worsened. She was evaluated at ED at Feb 20, 2025 and was discharged home with no significant findings. She currently complains of 10/10 abdominal pain, which is now diffuse. On evaluation in the ED, patient is afebrile, vitals are stable. Initial labs show WBC 14.6, AST 126 and ALT 44. Gallbladder US shows cholelithiasis and negative ultrasonic syed's sign. Liver measures 15.7 cm in length with parenchymal changes consistent with steatosis. Right kidney appears normal. The patient was placed NPO, started on IV antibiotics and IV fluids. Patient is admitted for further evaluation and management. Past Medical History prediabetes, migraine Past Surgical History: None Family History: None Smoke: No ALCOHOL: none Drugs: None Lives: with Family Review of Systems Review of Systems Constitutional: Dizziness Eyes: No Pain, No Vision change, No Conjunctivae inflammation, No Eyelid inflammation, No Other, No Redness ENT: No Ear pain, No Ear discharge, No Nose pain, No Nose discharge, No Nose congestion, No Mouth pain, No Mouth swelling, No Throat pain, No Throat swelling, No Other Cardiovascular: No Chest Pain, No Palpitations, No Orthopnea, No Paroxysmal No Dyspnea, No Edema, No Lt Headedness, No Other Respiratory: No Cough, No Dry, No Shortness of breath, No SOB with exertion, No Wheezing, No Hemoptysis, No Pleuritic Pain, No Sputum, No Other Gastrointestinal: Nausea, Vomiting, Abdominal Pain, No Diarrhea, No Constipation, No Melena, No Hematochezia, No Other Genitourinary: No Dysuria, No Frequency, No Incontinence, No Hematuria, No Retention, No Other Musculoskeletal: No other, No neck pain, No shoulder pain, No arm pain, No back pain, No hand pain, No leg pain, No foot pain Skin: No Rash, No Lesions, No Jaundice, No Bruising, No Other Allergies: Coded Allergies: Metoclopramide (Verified Allergy, Unknown, 11/23/24) Exam Vital Signs Vital Signs Date Time Temp Pulse Resp B/P (MAP) Pulse Ox O2 Delivery O2 Flow Rate FiO2 02/27/25 20:32 66 18 100 Room Air* 0 21 02/27/25 18:03 111/69 02/27/25 16:01 97.5 97.5 Exam General Appearance: Cooperative. Well developed. Well nourished. NAD Head Exam: Normal inspection Neck Exam: Normal inspection. Non-tender. Normal alignment Pulmonary/Respiratory: Chest non-tender. Clear bilateral breath sounds, no c rackles, no wheezing. Cardiovascular/Chest: Regular rate and rhythm. No murmurs. No JVD. Peripheral Pulses: 2+ Radial (R). 2+ Radial (L). 2+ Pedal (R). 2+ Pedal (L) Abdominal Exam: RUQ, RLQ tenderness. Normal bowel sounds. Soft. normal abdomen, no visible veins, No hepatospenomegaly. No masses Ankle Exam: Negative ankle edema Lower extremities: Negative lower extremity edema Neuro/Mental Status: A&O x4. Coherent. Thoughts/Psych: Normal thought pattern. Appropriate mood and affect. Good judgement and insight Skin Exam: Normal inspection. Normal color. Warm. Dry Labs/Xrays Labs Test 02/27/25 20:38 02/27/25 16:43 Range/Units Urine Color Yellow Yellow Urine Clarity Clear Clear Urine pH 7.0 5.0-9.0 Urine Specific [place] 1.013 1.001-1.035 Urine Protein Negative Negative Urine Ketones Trace Negative Urine Blood Negative Negative /uL Urine Nitrite Negative Negative Urine Bilirubin Negative Negative Urine Urobilinogen 8 H Negative mg/dL Urine Leukocyte Esterase Negative Negative /uL Urine RBC 3 0 - 4 /hpf Urine Microscopic WBC 2 0-5 /HPF Urine Squamous Epithelial Cells Few <5 /hpf Urine Bacteria Few H None Seen /hpf Urine Mucus Few None Seen Urine Glucose Normal Normal mg/dL White Blood Count 14.6 H 4.4-10.8 10^3/uL Red Blood Count 4.08 4.0-5.20 10^6/uL Hemoglobin 12.5 12.2-16.2 g/dL Hematocrit 37.8 36.0-46.0 % Mean Corpuscular Volume 92.7 80.0-100.0 fL Mean Corpuscular Hemoglobin 30.6 28.0-32.0 pg Mean Corpuscular Hemoglobin Concent 33.0 32.0-36.0 g/dL Red Cell Distribution Width 13.7 11.8-14.3 % Platelet Count 280 140-450 10^3/uL Mean Platelet Volume 10.1 6.9-10.8 fL Neutrophils (%) (Auto) 86.7 H 37.0-80.0 % Lymphocytes (%) (Auto) 6.5 L 10.0-50.0 % Monocytes (%) (Auto) 6.1 0.0-12.0 % Eosinophils (%) (Auto) 0.5 0.0-7.0 % Basophils (%) (Auto) 0.2 0.0-2.0 % Neutrophils # (Auto) 12.7 H 1.6-8.6 10 ^3/uL Lymphocytes # (Auto) 0.9 0.4-5.4 10 ^3/uL Monocytes # (Auto) 0.9 0-1.3 10 ^3/uL Eosinophils # (Auto) 0.1 0-0.8 10 ^3/uL Basophils # (Auto) 0 0-0.2 10 ^3/uL Nucleated Red Blood Cells 0.0 % Sodium Level 141 136-145 mmol/L Potassium Level 3.5 3.5-5.1 mmol/L Chloride Level 108 H 98-107 mmol/L Carbon Dioxide Level 24 20-31 mmol/L Anion Gap 9 5-15 Blood Urea Nitrogen 8 L 9-23 mg/dL Creatinine 0.65 0.550-1.02 mg/dL Glomerular Filtration Rate Calc 121 >90 mL/min BUN/Creatinine Ratio 12.3 10.0-20.0 Serum Glucose 95 74-106 mg/dL Calcium Level 9.1 8.7-10.4 mg/dL Total Bilirubin 0.8 0.2-1.0 mg/dL Aspartate Amino Transferase (AST) 126 H 13-40 U/L Alanine Aminotransferase (ALT) 44 H 7-40 U/L Alkaline Phosphatase 82 46-116 U/L Total Protein 7.3 5.7-8.2 g/dL Albumin 4.1 3.2-4.8 g/dL Lipase 39 12-53 U/L SEPSIS Sepsis Screen Date sepsis recognized/suspect: Feb 27, 2025 Time Sepsis recognized/suspect: 1614 Recent Procedure: No On Antibiotic Therapy: No Respiratory Rate >20: No Heart Rate >90: No Temp<36 C (96.8 F) or >38.3 C: No SBP <90 or MAP <65 mmHG: No New Acute Mental Status Change: No Is the patient on CPAP, BIPAP,: No Physician Orders Heplock Iv (02/27/25 16:16) Dairy Husbandry Worker (02/27/25 16:16) Blood Pressure (02/27/25 16:16) Pulse Oximetry (02/27/25 16:16) Gallbladder (02/27/25 16:16) Admit (02/27/25 21:16) Allergies (02/27/25 21:16) Code Status (02/27/25 21:16) Ondansetron Hcl (Zofran) (02/27/25 21:30) Complete Blood Count (02/28/25 04:00) Comprehensive Metabolic Panel (02/28/25 04:00) Npo (Nothing By Mouth) Diet (02/28/25 Breakfast) Condition: Fair (02/27/25 21:16) Stat Ekg For Chest Pain (02/27/25 21:16) Notify Md Of Changes From Base (02/27/25 21:16) Emergency Dysrhythmia Protocol (02/27/25 21:16) Rhythm Strips Once Every Shift (02/27/25 21:16) High Density Press Operator For 24 Hours (02/27/25 21:16) Type And Screen (02/27/25 21:16) PTPTT (02/27/25 21:16) Drug Screen (02/27/25 21:16) NS (02/27/25 21:30) Pantoprazole (Protonix) (02/27/25 21:30) Pantoprazole (Protonix) (02/28/25 10:00) Chest Xray 1 View (02/27/25 21:16) Beta Hcg, Quantitative (02/27/25 21:16) Magnesium (02/27/25 21:16) Hydromorphone Injection (Dilaudid Inject (02/27/25 21:30) Ceftriaxone Ivpb Rocephin (02/27/25 21:30) Vital Signs Date Time Temp Pulse Resp B/P (MAP) Pulse Ox O2 Delivery O2 Flow Rate FiO2 02/27/25 20:32 66 18 100 Room Air* 0 21 02/27/25 18:03 68 16 111/69 02/27/25 18:00 69 9 111/69 (83) 99 02/27/25 17:03 77 13 102/59 02/27/25 16:15 61 16 102/59 (73) 100 02/27/25 16:15 61 17 100 Room Air* 0 21 02/27/25 16:01 97.5 60 18 93/65 100 97.5 Laboratory Tests Test 02/27/25 16:43 White Blood Count 14.6 10^3/uL (4.4-10.8) H Medications Medications Dose Ordered Sig/Denia Route Start Time Stop Time Status Last Admin Dose Admin Hydromorphone HCl 1 mg ONCE ONCE IV 02/27/25 16:30 02/27/25 16:31 DC 02/27/25 17:03 1 MG Ondansetron HCl 4 mg ONCE ONCE IV 02/27/25 16:30 02/27/25 16:31 DC 02/27/25 17:01 4 MG Pantoprazole Sodium 40 mg ONCE ONCE IV 02/27/25 16:30 02/27/25 16:31 DC 02/27/25 17:01 40 MG Sodium Chloride 1,000 ml @ 1,000 mls/hr Q1H ONCE IVB 02/27/25 16:30 02/27/25 17:29 DC 02/27/25 17:00 1,000 MLS/HR Assessment/Plan Assessment/Plan Acute cholelithiasis Steatosis Intractable abdominal pain due to above Abdomen/Pelvis CT: No acute abdominal or pelvic findings. Liver: The liver is normal in size. No focal lesions. Gallbladder and Biliary Tree: Unremarkable Gallbladder US: Cholelithiasis and negative ultrasonic syed's sign. Liver measures 15.7 cm in length with parenchymal changes consistent with steatosis. Right kidney appears normal. Chest X-ray: No acute disease. NPO Ceftriaxone IV daily Metronidazole IV q8h Zofran 4 MG IV q4h Pantoprazole 40 MG IV daily pain management with Dilaudid 0.5 MG IV q4h Transaminase AST 126 ALT 44 monitor Obesity, BMI 34.2 kg/m2 I have counseled the patient on healthy lifestyle modifications. Diet: NPO PUD prophylaxis: Protonix 40mg Goals of care: Full code, discussed for >30 minutes on 02/27/25 Plan discussed with patient Plan discussed with Dr. Contreras Plan discussed with: Patient My Orders Orders - SKYLER MERCADO Procedure Category Date Status Time Admit ADMIT 02/27/25 Verified 21:16 Allergies [facility] 02/27/25 Verified 21:16 Code Status CODE 02/27/25 Verified 21:16 Ond[address] [facility] 02/27/25 Verified (Zofran) 21:30 Complete Blood Count LAB 02/28/25 Verified 04:00 Comprehensive LAB 02/28/25 Verified Metabolic Panel 04:00 Npo (Nothing By DIET 02/28/25 Verified Mouth) Diet Breakfast Condition: Fair [facility] 02/27/25 Verified 21:16 Stat Ekg For Chest [facility] 02/27/25 Verified Pain 21:16 Notify Md Of Changes [facility] 02/27/25 Verified From Base 21:16 Emergency Dysrhythmia [facility] 02/27/25 Verified Protocol 21:16 Rhythm Strips Once [facility] 02/27/25 Verified Every Shift 21:16 High Density Press Operator For [facility] 02/27/25 Verified 24 Hours 21:16 Type And Screen [facility] 02/27/25 Verified 21:16 PTPTT LAB 02/27/25 Verified 21:16 Drug Screen LAB 02/27/25 Verified 21:16 NS PHA 02/27/25 Verified 21:[address] [facility] 02/27/25 Verified (Protonix) 21:[address] [facility] 02/28/25 Verified (Protonix) 10:00 Chest Xray 1 View XY 02/27/25 Verified 21:16 Beta Hcg, Quantitative LAB 02/27/25 Verified 21:16 Magnesium LAB 02/27/25 Verified 21:16 Hydromorphone PHA 02/27/25 Verified Injection (Dilaudid 21:30 Ceftriaxone Ivpb [facility] 02/27/25 Verified Rocephin 21:30 Date of Service: Feb 27, 2025 Billing Provider: PRASHANT CONTRERAS MD Common Visit Codes: 88993-[id number] INP/OBS CARE (HIGH) Secondary Visit Codes: 49945-POIOUCUU CARE PLAN 30 MINUTES SKYLER MERCADO Feb 27, 2025 21:43
[2025-02-27 22:10] LABS: Opiate Scree,Urine Neg (NEGATIVE)
[2025-02-27 22:16] LABS: Amphetamine Screen, Urine Neg (NEGATIVE); Barbiturate Scree,Urine Neg (NEGATIVE); Benzodiazephine Screen, Urine Neg (NEGATIVE); Cannabinoid Screen, Urine Neg (NEGATIVE); Cocaine Screen, Urine Neg (NEGATIVE); Phencyclidine Screen, Urine Neg (NEGATIVE)
[2025-02-27 22:18] LABS: INR 1.07 (0.9-1.15); Partial Thromboplastin Time 28.9 SEC (24.5-34.5); Prothrombin Time 11.3 sec (9.3-11.8)
[2025-02-27] MEDS: SODIUM CHLORIDE 0.9% 1,000 ML IV ONE (22:32)
--- NOTE | 2025-02-27 22:53 | DVH ---
Exam: CT CT AB PEL WO CON-NO ORAL OR IV History: cholelithiasis Comparison Study: CT CT AB PEL WO CON-NO ORAL OR IV on DOS: 11/23/24 Technique: Multidetector spiral CT of the abdomen was performed from lung bases to pubic symphysis. Imaging was performed without IV contrast. Axial, coronal and sagittal multiplanar reformats were obtained from the axial data set by the technologist. Radiation Dose : 1. Abdomen/Pelvis: CTDIvol 22.8 mGy, DLP 1450.12 mGy*cm. Findings: Evaluation of solid organs is limited due to lack of intravenous contrast use. Lung Bases: No acute or significant lung base finding. Normal heart size. No pleural or pericardial effusion. Liver: The liver is normal in size. No focal lesions. Gallbladder and Biliary Tree: Unremarkable Spleen: Unremarkable Pancreas: The pancreas is grossly normal in appearance. Adrenal Glands: Unremarkable Kidneys: Kidneys are grossly normal without calculi or hydronephrosis. Bladder: Grossly unremarkable for degree of distention. Bowel: The stomach is grossly normal in appearance. Small bowel and colon are normal in caliber and distribution. Normal appendix is visualized in the right lower quadrant without findings of appendicitis. Ascites: Absent Lymphadenopathy: No mesenteric, retroperitoneal or periportal lymphadenopathy. Abdominal Wall and Mesentery: Unremarkable. Vasculature: The visualized abdominal aorta is normal in size and caliber. Evaluation of abdominal and pelvic vessels is limited due to lack of intravenous contrast. Pelvic Organs: Unremarkable Musculoskeletal: No aggressive focal bony lesions, acute fractures or dislocation. IMPRESSION: No acute abdominal or pelvic findings. Radiation optimization: All CT scans at this facility use at least one of these dose optimization techniques: automated exposure control mA and/or kV adjustment per patient size (includes targeted exams where dose is matched to clinical indication) or iterative reconstruction.
--- NOTE | 2025-02-27 23:04 | DVH ---
CHEST RADIOGRAPH Indication: chest pain Technique: Single frontal view of the chest was obtained COMPARISON: CT CT AB PEL WO CON-NO ORAL OR IV on DOS: 02/27/25, US GALLBLADDER on DOS: 02/27/25, US ABDOMEN LIMITED on DOS: 02/20/25, US GALLBLADDER on DOS: 11/23/24, CT CT AB PEL WO CON-NO ORAL OR IV on DOS: 11/23/24 FINDINGS: Lungs and pleural spaces are clear. Cardiac silhouette and claudia are within normal limits. Bones and soft tissues demonstrate no significant abnormality. IMPRESSION: No acute disease.
[2025-02-28] MEDS: HYDROmorphone HCL 2 MG/ML VL/or syr IV PRN (00:15)
[2025-02-28] MEDS: ONDANSETRON HCL 4 MG/2 ML VIAL IV PRN (01:34)
[2025-02-28 04:00] VITALS: PULSE 84; RESP 19; O2SAT 94
[2025-02-28 04:28] LABS: Hematocrit 34.0 % (36.0-46.0); Hemoglobin 11.4 g/dL (12.2-16.2); Mean Corpuscular Hemoglobin 31.3 pg (28.0-32.0); Mean Corpuscular Volume 93.5 fL (80.0-100.0); Nucleated Red Blood Cells % 0.1 %
[2025-02-28 04:46] LABS: Albumin 3.5 g/dL (3.2-4.8); Alkaline Phosphatase 78 U/L (46-116); Anion Gap 10 (5-15); BUN/Creatinine Ratio 10.3 (10.0-20.0); Bilirubin, Total 0.5 mg/dL (0.2-1.0); Carbon Dioxide 22 mmol/L (20-31); Glucose 78 mg/dL (74-106); Potassium 3.5 mmol/L (3.5-5.1); Sodium 141 mmol/L (136-145); Total Protein 6.2 g/dL (5.7-8.2)
[2025-02-28] MEDS ORDERED: DICY10CA PO (04:51)
[2025-02-28] MEDS ORDERED: TIRZ2.5I2 SC (04:51)
[2025-02-28] MEDS ORDERED: ACET-1304 PO (04:51)
[2025-02-28] MEDS ORDERED: LORA-1121 PO (04:51)
[2025-02-28] MEDS ORDERED: SUMA50TA2 PO (04:51)
[2025-02-28 04:54] LABS: Alanine Aminotransferase 79 U/L (7-40); Blood Urea Nitrogen 6 mg/dL (9-23); Calcium 8.2 mg/dL (8.7-10.4); Chloride 109 mmol/L (98-107)
[2025-02-28] MEDS: SODIUM CHLORIDE 0.9% 1,000 ML IV SCH (11:28)
[2025-02-28] MEDS: PANTOPRAZOLE 40 MG/10 ML VIAL INJ IV SCH (12:08)
[2025-02-28] MEDS: PIPERACILLIN-TAZOB 3.375GM 100 ML IV SCH (16:01)
--- NOTE | 2025-02-28 16:19 | DVH ---
Procedure: DC NM HIDA SCAN Exam Date: 02/28/2025 08:34 AM Clinical History: Rule out cholecystitis Comparison Study: None Nuclear Medicine Hepatobiliary Scan. Technique: Following the intravenous administration of 4.1 mCi of technetium 99m labeled Choletec multiple planar abdominal planar images were obtained in anterior projection in 1 minute intervals for 43 minutes . Right lateral images were obtained at 45 minutes after injection. Findings: The liver appears grossly normal in size. There is no abnormal persistence of the cardiac or blood pool activity. There is prompt visualization of the gallbladder and excretion of activity into the small bowel. Impression: Patent cystic duct.
--- NOTE | 2025-02-28 16:50 | DVHPNRES ---
Progress Note Date Seen: Feb 28, 2025 Resident Creating Document: ELIOT WALTERS RESIDENT Medical Necessity Reason Pt with a Central, PICC or Fol: No Subjective Review of Systems Bri Lopez is a 29-year old female with past medical history of prediabetes, migraine and anxiety who came to the ED with the chief complaint of abdominal pain. The patient describes the pain as intense, localized to the right upper quadrant, rated as 10/10 in intensity, associated with nausea and 3 episodes of vomiting. Patient has had similar episodes of abdominal pain on and off for the last 4 months and has visited multiple hospitals wherein she was recommended surgery but she refused. Gall bladder ultrasound showed cholelithiasis and hepatic steatosis. Abdomen/pelvic CT showed no acute abdominal or pelvic findings. Past medical history: prediabetes, migraine, anxiety Past surgical history: none Social & Personal history: lives at home with family, denies any smoking, alcohol and drugs Allergies: metoclopramide Patient seen and examined at bedside. Patient is alert and oriented to time, place person and responding to all questions. Eyes: No Pain, No Vision change, No Conjunctivae inflammation, No Eyelid inflammation, No Redness ENT: No Ear pain, No Ear discharge, No Nose pain, No Nose discharge, No Nose congestion, No Mouth pain, No Mouth swelling, No Throat pain, No Throat swelling Cardiovascular: No Chest Pain, No Palpitations, No Orthopnea, No Paroxysmal No Dyspnea, No Edema, No Lt Headedness Respiratory: No Cough, No Dry, No Shortness of breath, No SOB with exertion, No Wheezing, No Hemoptysis, No Pleuritic Pain, No Sputum Gastrointestinal: Nausea, No Vomiting, Abdominal Pain, No Diarrhea, No Constipation, No Melena, No Hematochezia Genitourinary: No Dysuria, No Frequency, No Incontinence, No Hematuria, No Retention Objective vital signs Vital Sign Date Time Temp Pulse Resp B/P (MAP) Pulse Ox O2 Delivery O2 Flow Rate FiO2 02/28/25 12:39 58 16 103/67 02/28/25 08:00 97.9 99 97.9 02/28/25 04:00 Room Air* 0 21 Total Intake and Output 02/27/25 02/27/25 02/28/25 15:00 23:00 07:00 Intake Total 1000 ml Balance 1000 ml medications Current Medications Medications Dose Ordered Sig/Denia Route Start Time Stop Time Status Last Admin Dose Admin Ondansetron HCl 4 mg Q4HP PRN IV 02/27/25 21:30 02/28/25 12:18 4 MG Pantoprazole Sodium 40 mg DAILY IV 02/28/25 10:00 02/28/25 12:08 40 MG Hydromorphone HCl 0.5 mg Q4HPRN PRN IV 02/27/25 21:30 02/28/25 12:09 0.5 MG Sodium Chloride 1,000 ml @ 75 mls/hr [id number] IV 02/28/25 09:00 02/28/25 11:28 75 MLS/HR Piperacillin Sod/ Tazobactam Sod 100 ml @ 25 mls/hr Q8HR IV 02/28/25 14:00 02/28/25 16:01 25 MLS/HR Examination General Appearance: Cooperative. Well developed. Well nourished. NAD Head Exam: Normal inspection Neck Exam: Normal inspection. Non-tender. Normal alignment Pulmonary/Respiratory: Chest non-tender. Clear bilateral breath sounds, no crackles, no wheezing. Cardiovascular/Chest: Regular rate and rhythm. No murmurs. No JVD. Peripheral Pulses: 2+ Radial (R). 2+ Radial (L). 2+ Pedal (R). 2+ Pedal (L) Abdominal Exam: Normal bowel sounds. Soft. normal abdomen, no visible veins, t enderness in right upper quadrant, positive Salas's sign, No hepatosplenomegaly, No masses Ankle Exam: Negative ankle edema Lower extremities: Negative lower extremity edema Neuro/Mental Status: A&O x4. Coherent. Thoughts/Psych: Normal thought pattern. Appropriate mood and affect. Good judgement and insight Skin Exam: Normal inspection. Normal color. Warm. Dry laboratory and microbiology Laboratory Tests 02/28/25 03:32 Test 02/28/25 03:32 Range/Units Serum Glucose 78 74-106 mg/dL Labs and/or images reviewed: Labs reviewed by me, Image(s) reviewed by me Problem List/Assessment/Plan Problem List/Assessment/Plan Assessment and plan: # Cholelithiasis with possible acute cholecystitis #Acute transamnitis #Acute intractable abdominal pain, likely due to above # Hepatic steatosis -keep NPO -Iv Zosyn 3.375 gm q8hr -IV fluids at 75ml/hr -Gall bladder US- showed cholelithiasis -Abdomen/pelvic CT- No acute abdominal or pelvic findings -HIDA scan- patent cystic duct -surgical consult- pending evaluation PUD prophylaxis: protonix 40mg iv daily DVT prophylaxis: ambulating, not indicated Goals of care: Full code, discussed for 23 minutes Plan discussed with patient Plan discussed with Dr Contreras Plan discussed with: Patient Dietary Evaluation Review Comments: Nutrition Recommendation: 1) advance to low fat diet as medically feasible 2) Monitor NPO status, lab values, weight trend, and I/O Expected Outcomes/Goals: GI symptoms to improve Intake to meet >75% estimated needs FU 2-3 days Date of Service: Feb 28, 2025 Billing Provider: PRASHANT CONTRERAS MD Common Visit Codes: [id number] INP/OBS CARE(HIGH) Date of Service: Feb 28, 2025 Billing Provider: PRASHANT CONTRERAS MD Common Visit Codes: [id number] INP/OBS CARE(HIGH) ELIOT WALTERS RESIDENT Feb 28, 2025 16:50 ROGELIO MUNIZ RESIDENT Feb 28, 2025 18:20
[2025-02-28 17:00] VITALS: BP 112/74; PULSE 61; RESP 16; TEMP 98.1; O2SAT 99
[2025-02-28] MEDS ORDERED: RIME75TA PO (17:55)
[2025-02-28 21:00] VITALS: BP 95/50; PULSE 85; RESP 16; TEMP 98.5; O2SAT 97
[2025-02-28 22:46] VITALS: BP 95/50; PULSE 85; RESP 16; TEMP 98.5; O2SAT 97
[2025-03-01] VITALS (7 sets, daily range): BP systolic 93–140; BP diastolic 63–89; PULSE 58–82; RESP 16–20; TEMP 97.8–98.7; O2SAT 95–100
[2025-03-01 05:44] LABS: Hematocrit 33.6 % (36.0-46.0); Hemoglobin 11.4 g/dL (12.2-16.2); Mean Corpuscular Hemoglobin 31.2 pg (28.0-32.0); Mean Corpuscular Volume 92.0 fL (80.0-100.0); Nucleated Red Blood Cells % 0.1 %
[2025-03-01 06:08] LABS: Anion Gap 10 (5-15); Carbon Dioxide 26 mmol/L (20-31); Potassium 3.5 mmol/L (3.5-5.1); Sodium 143 mmol/L (136-145)
[2025-03-01 06:10] LABS: Calcium 8.8 mg/dL (8.7-10.4); Chloride 107 mmol/L (98-107)
[2025-03-01 06:14] LABS: Glucose 78 mg/dL (74-106)
[2025-03-01 06:19] LABS: BUN/Creatinine Ratio 8.9 (10.0-20.0); Blood Urea Nitrogen < 5 mg/dL (9-23)
[2025-03-01] MEDS: MORPHINE SULFATE INJ 2 MG/ml SYRG IV ONE (08:03)
--- NOTE | 2025-03-01 08:14 | DVHINCON2 ---
Date of service: Mar 01, 2025 Family History: Alcoholism Asthma G8 MOTHER Diabetes mellitus G8 FATHER, , Cause: Heart valve problem Aunt x2 FH: breast cancer Aunt x2 FH: migraines G8 MOTHER Heart murmur G8 MOTHER Allergies: Coded Allergies: Metoclopramide (Verified Allergy, Unknown, 11/23/24) Home Meds Active Scripts Ondansetron Odt 4MG Tab (ZOFRAN PO) 4 Mg Tb, 4 MG PO Q8HPRN PRN for 3 Days, #9 TAB ODT TAB-DISSOLVE IN MOUTH, THEN SWALLOW Prov:ADOLPH ROJAS DO 02/20/25 Nitrofurantoin Monohydrate Mac (Macrobid) 100 Mg Cap, 100 MG PO BID for 7 Days, #14 CAP Prov:ADOLPH ROJAS DO 02/20/25 Reported Medications Rimegepant Sulfate (Nurtec) 75 Mg Tab, 75 MG PO PRN for FOR HEADACHE, TAB 02/28/25 Tirzepatide (Zepbound) 2.5 Mg/0.5 Ml Inj, 2.5 MG SC DAILY, INJ 02/28/25 Acetaminophen (Tylenol Extra Strength) 500 Mg Tab, 500 MG PO DAILY, TAB 02/28/25 Sumatriptan Succinate (Imitrex) 50 Mg Tab, 50 MG PO DAILY, TAB 02/28/25 Dicyclomine Hcl (BENTYL CAPSULE) 10 Mg Cp, 1 CAP PO DAILY, #90 CAP 11 Refills 02/28/25 Lorazepam (ATIVAN TABLET) 0.5 Mg Tb, 1 TAB PO DAILY, #30 TAB 02/28/25 Current Medications Current Medications Medications (Trade) Dose Ordered Sig/Denia Route PRN Reason Start Time Stop Time Status Last Admin Pantoprazole Sodium (Protonix) 40 mg DAILY IV 02/28/25 10:00 02/28/25 12:08 Ceftriaxone Sodium 50 ml @ 100 mls/hr DAILY@09 IV 02/28/25 09:00 02/28/25 11:43 DC Sodium Chloride 1,000 ml @ 75 mls/hr [id number] IV 02/28/25 09:00 02/28/25 23:47 Piperacillin Sod/ Tazobactam Sod 100 ml @ 25 mls/hr Q8HR IV 02/28/25 14:00 03/01/25 06:35 Patient Own Medication 75 mg PRN PRN PO FOR HEADACHE 02/28/25 20:00 02/28/25 18:35 DC Patient Own Medication 75 mg DAILY@PRN PRN PO HEADACHE 02/28/25 18:45 Vital Signs Vital Signs Date Time Temp Pulse Resp B/P (MAP) Pulse Ox O2 Delivery O2 Flow Rate FiO2 03/01/25 05:00 98.0 69 16 106/77 (87) 97 98.0 02/28/25 04:00 Room Air* 0 21 Labs/Diagnostic Data Labs Test 03/01/25 04:53 02/28/25 03:32 02/27/25 21:48 02/27/25 20:38 Range/Units White Blood Count 8.2 # 4.4-10.8 10^3/uL Red Blood Count 3.65 L 4.0-5.20 10^6/uL Hemoglobin 11.4 L 12.2-16.2 g/dL Hematocrit 33.6 L 36.0-46.0 % Mean Corpuscular Volume 92.0 80.0-100.0 fL Mean Corpuscular Hemoglobin 31.2 28.0-32.0 pg Mean Corpuscular Hemoglobin Concent 33.9 32.0-36.0 g/dL Red Cell Distribution Width 13.5 11.8-14.3 % Platelet Count 258 140-450 10^3/uL Mean Platelet Volume 10.1 6.9-10.8 fL Neutrophils (%) (Auto) 65.4 37.0-80.0 % Lymphocytes (%) (Auto) 22.8 10.0-50.0 % Monocytes (%) (Auto) 8.9 0.0-12.0 % Eosinophils (%) (Auto) 2.5 0.0-7.0 % Basophils (%) (Auto) 0.4 0.0-2.0 % Neutrophils # (Auto) 5.4 1.6-8.6 10 ^3/uL Lymphocytes # (Auto) 1.9 0.4-5.4 10 ^3/uL Monocytes # (Auto) 0.7 0-1.3 10 ^3/uL Eosinophils # (Auto) 0.2 0-0.8 10 ^3/uL Basophils # (Auto) 0 0-0.2 10 ^3/uL Nucleated Red Blood Cells 0.1 % Sodium Level 143 136-145 mmol/L Potassium Level 3.5 3.5-5.1 mmol/L Chloride Level 107 98-107 mmol/L Carbon Dioxide Level 26 20-31 mmol/L Anion Gap 10 5-15 Blood Urea Nitrogen < 5 L 9-23 mg/dL Creatinine 0.56 0.550-1.02 mg/dL Glomerular Filtration Rate Calc 125 >90 mL/min BUN/Creatinine Ratio 8.9 L 10.0-20.0 Serum Glucose 78 74-106 mg/dL Calcium Level 8.8 8.7-10.4 mg/dL Total Bilirubin 0.5 0.2-1.0 mg/dL Aspartate Amino Transferase (AST) 131 H 13-40 U/L Alanine Aminotransferase (ALT) 79 H 7-40 U/L Alkaline Phosphatase 78 46-116 U/L Total Protein 6.2 5.7-8.2 g/dL Albumin 3.5 3.2-4.8 g/dL Vitamin B12 Level 623 211-911 pg/mL Vitamin D 25-Hydroxy 45.9 30.0-100 ng/mL Thyroid Stimulating Hormone (TSH) 1.92 0.55-4.78 uIU/mL Prothrombin Time 11.3 9.3-11.8 sec Prothrombin Time INR 1.07 0.9-1.15 Activated Partial Thromboplast Time 28.9 24.5-34.5 SEC Urine Color Yellow Yellow Urine Clarity Clear Clear Urine pH 7.0 5.0-9.0 Urine Specific [place] 1.013 1.001-1.035 Urine Protein Negative Negative Urine Ketones Trace Negative Urine Blood Negative Negative /uL Urine Nitrite Negative Negative Urine Bilirubin Negative Negative Urine Urobilinogen 8 H Negative mg/dL Urine Leukocyte Esterase Negative Negative /uL Urine RBC 3 0 - 4 /hpf Urine Microscopic WBC 2 0-5 /HPF Urine Squamous Epithelial Cells Few <5 /hpf Urine Bacteria Few H None Seen /hpf Urine Mucus Few None Seen Urine Glucose Normal Normal mg/dL Urine Opiates Screen Neg NEGATIVE Urine Fentanyl Screen Pos NEGATIVE Urine Barbiturates Screen Neg NEGATIVE Urine Phencyclidine Screen Neg NEGATIVE Urine Amphetamines Screen Neg NEGATIVE Urine Benzodiazepines Screen Neg NEGATIVE Urine Cocaine Screen Neg NEGATIVE Urine Cannabinoids Screen Neg NEGATIVE Test 02/27/25 16:43 Range/Units Magnesium Level 1.9 1.6-2.6 mg/dL Lipase 39 12-53 U/L Beta HCG, Quantitative 0.9 L 1.5-4.2 mIU/mL Assessment 29 year old female with several prior episodes of post prandial abdominal pain, now with gallstones abdominal pain, nl wbc, nl bilirubin, tender upper abdomen, no prior abdominal operations, quit drinking alcohol about a year ago(moderate use till then), non smoker, uses no illicit drugs. allergic to metoclopramide. laparoscopic possibly open cholecystectomy, risks and complications explained in detail Plan discussed with: Patient CHANDRIKA VILLALOBOS MD Mar 01, 2025 08:14
[2025-03-01] MEDS: IBUPROFEN 800 MG TAB PO ONE (13:20)
--- NOTE | 2025-03-01 17:50 | DVHPNRES ---
Progress Note Date Seen: Mar 01, 2025 Resident Creating Document: ELIOT WALTERS RESIDENT Medical Necessity Reason Pt with a Central, PICC or Fol: No Subjective Review of Systems Bri Lopez is a 29-year old female with past medical history of prediabetes, migraine and anxiety who came to the ED with the chief complaint of abdominal pain. The patient describes the pain as intense, localized to the right upper quadrant, rated as 10/10 in intensity, associated with nausea and 3 episodes of vomiting. Patient has had similar episodes of abdominal pain on and off for the last 4 months and has visited multiple hospitals wherein she was recommended surgery but she refused. Gall bladder ultrasound showed cholelithiasis and hepatic steatosis. Abdomen/pelvic CT showed no acute abdominal or pelvic findings. Past medical history: prediabetes, migraine, anxiety Past surgical history: none Social & Personal history: lives at home with family, denies any smoking, alcohol and drugs Allergies: metoclopramide Patient seen and examined at bedside. Patient is alert and oriented to time, place person and responding to all questions. Eyes: No Pain, No Vision change, No Conjunctivae inflammation, No Eyelid inflammation, No Redness ENT: No Ear pain, No Ear discharge, No Nose pain, No Nose discharge, No Nose congestion, No Mouth pain, No Mouth swelling, No Throat pain, No Throat swelling Cardiovascular: No Chest Pain, No Palpitations, No Orthopnea, No Paroxysmal No Dyspnea, No Edema, No Lt Headedness Respiratory: No Cough, No Dry, No Shortness of breath, No SOB with exertion, No Wheezing, No Hemoptysis, No Pleuritic Pain, No Sputum Gastrointestinal: Nausea, No Vomiting, Abdominal Pain, No Diarrhea, No Constipation, No Melena, No Hematochezia Genitourinary: No Dysuria, No Frequency, No Incontinence, No Hematuria, No Retention 03/01/25- The patient was seen at bedside today. She stated that her pain had reduced since yesterday with the pain medication. She is scheduled for lap vs open cholecystectomy tomorrow. Family was called and given all updates. Patient complained of a headache for which she was given ibuprofen. Objective vital signs Vital Sign Date Time Temp Pulse Resp B/P (MAP) Pulse Ox O2 Delivery O2 Flow Rate FiO2 03/01/25 16:47 98.2 61 20 97/63 (74) 96 98.2 03/01/25 08:10 Room Air* 0 21 Total Intake and Output 02/28/25 02/28/25 03/01/25 15:00 23:00 07:00 Intake Total 0 ml 100 ml Balance 0 ml 100 ml medications Current Medications Medications Dose Ordered Sig/Denia Route Start Time Stop Time Status Last Admin Dose Admin Ondansetron HCl 4 mg Q4HP PRN IV 02/27/25 21:30 02/28/25 23:36 4 MG Pantoprazole Sodium 40 mg DAILY IV 02/28/25 10:00 03/01/25 09:59 40 MG Hydromorphone HCl 0.5 mg Q4HPRN PRN IV 02/27/25 21:30 02/28/25 23:37 0.5 MG Sodium Chloride 1,000 ml @ 75 mls/hr [id number] IV 02/28/25 09:00 03/01/25 15:14 75 MLS/HR Piperacillin Sod/ Tazobactam Sod 100 ml @ 25 mls/hr Q8HR IV 02/28/25 14:00 03/01/25 15:13 25 MLS/HR Patient Own Medication 75 mg DAILY@PRN PRN PO 02/28/25 18:45 Ibuprofen 800 mg Q8HP PRN PO 03/01/25 13:00 Examination General Appearance: Cooperative. Well developed. Well nourished. NAD Head Exam: Normal inspection Neck Exam: Normal inspection. Non-tender. Normal alignment Pulmonary/Respiratory: Chest non-tender. Clear bilateral breath sounds, no crackles, no wheezing. Cardiovascular/Chest: Regular rate and rhythm. No murmurs. No JVD. Peripheral Pulses: 2+ Radial (R). 2+ Radial (L). 2+ Pedal (R). 2+ Pedal (L) Abdominal Exam: Normal bowel sounds. Soft. normal abdomen, no visible veins, tenderness in right upper quadrant, positive Salas's sign, No hepatosplenomegaly, No masses Ankle Exam: Negative ankle edema Lower extremities: Negative lower extremity edema Neuro/Mental Status: A&O x4. Coherent. Thoughts/Psych: Normal thought pattern. Appropriate mood and affect. Good judgement and insight Skin Exam: Normal inspection. Normal color. Warm. Dry laboratory and microbiology Laboratory Tests 03/01/25 04:53 Test 03/01/25 04:53 Range/Units Serum Glucose 78 74-106 mg/dL Microbiology Date/Time Source Procedure Growth Status 02/28/25 09:57 Nose MRSA Screen - Final Complete Labs and/or images reviewed: Labs reviewed by me, Image(s) reviewed by me Problem List/Assessment/Plan Problem List/Assessment/Plan Assessment and plan: # Cholelithiasis with possible acute cholecystitis #Acute transamnitis #Acute intractable abdominal pain, likely due to above # Hepatic steatosis -clear liquids today, keep NPO after midnight -IV Zosyn 3.375 gm q8hr -IV fluids at 75ml/hr -Gall bladder US- showed cholelithiasis -Abdomen/pelvic CT- No acute abdominal or pelvic findings -HIDA scan- patent cystic duct -surgical consult- scheduled for lap vs open cholecystectomy on 03/02/25 # Migraine headache -continue home medication Nurtec 75mg po prn PUD prophylaxis: protonix 40mg iv daily DVT prophylaxis: ambulating, not indicated Goals of care: Full code, discussed for 23 minutes Plan discussed with patient Plan discussed with Dr Contreras Plan discussed with: Patient My Orders My Orders Orders - ELIOT WALTERS RESIDENT Procedure Category Date Status Time Clear Liq Diet DIET 03/01/25 Verified Lunch Ibuprofen Tablet PHA 03/01/25 In Process (Motrin Tablet) 13:00 Dietary Evaluation Review Comments: Nutrition Recommendation: 1) advance to low fat diet as medically feasible 2) Monitor NPO status, lab values, weight trend, and I/O Expected Outcomes/Goals: GI symptoms to improve Intake to meet >75% estimated needs FU 2-3 days Date of Service: Mar 01, 2025 Billing Provider: PRASHANT CONTRERAS MD Common Visit Codes: [id number] INP/OBS CARE(HIGH) ELIOT WALTERS RESIDENT Mar 01, 2025 17:50
[2025-03-01] MEDS: IBUPROFEN 800 MG TAB PO PRN (23:34)
[2025-03-02 01:00] VITALS: BP 119/83; PULSE 66; RESP 16; TEMP 98.1; O2SAT 97
[2025-03-02 05:00] VITALS: BP 107/61; PULSE 68; RESP 17; TEMP 98.1; O2SAT 97
[2025-03-02 05:50] LABS: Potassium 3.5 mmol/L (3.5-5.1); Sodium 142 mmol/L (136-145)
[2025-03-02 05:51] LABS: Anion Gap 6 (5-15); Carbon Dioxide 25 mmol/L (20-31)
[2025-03-02 05:57] LABS: Glucose 79 mg/dL (74-106)
[2025-03-02 06:09] LABS: Hematocrit 33.6 % (36.0-46.0); Hemoglobin 11.0 g/dL (12.2-16.2); Mean Corpuscular Hemoglobin 30.4 pg (28.0-32.0); Mean Corpuscular Volume 92.5 fL (80.0-100.0); Nucleated Red Blood Cells % 0.0 %
[2025-03-02 06:21] LABS: BUN/Creatinine Ratio 6.9 (10.0-20.0); Blood Urea Nitrogen < 5 mg/dL (9-23); Calcium 8.4 mg/dL (8.7-10.4); Chloride 111 mmol/L (98-107)
[2025-03-02 08:30] VITALS: BP_SYST 101; BP_SYST 149; BP_DIAS 63; BP_DIAS 85; PULSE 71; PULSE 82; RESP 16; RESP 18; TEMP 97.6; TEMP 98.4; O2SAT 97
[2025-03-02] MEDS ORDERED: HYDROmorphone HCL 2 MG/ML VL/or syr IV PRN (11:15)
[2025-03-02] MEDS ORDERED: ONDANSETRON HCL 4 MG/2 ML VIAL IV PRN (11:15)
[2025-03-02] MEDS ORDERED: ONDANSETRON HCL 4 MG/2 ML VIAL ONE (11:25)
[2025-03-02] MEDS ORDERED: MIDAZOLAM HCL 2MG/2ML 2ml VIAL (1mg/ml) ONE (11:25)
[2025-03-02] MEDS ORDERED: PROPOFOL 10 MG/ML 20 ML IV ONE (11:25)
[2025-03-02] MEDS ORDERED: ROCURONIUM 10MG/ML 10ML VIAL IV ONE (11:25)
[2025-03-02] MEDS ORDERED: fentaNYL CITRATE 100 MCG/2 ML VL ONE (11:25)
[2025-03-02] MEDS: ceFAZolin 1GM VL ONE (11:30)
[2025-03-02] MEDS ORDERED: HYDROmorphone HCL 2 MG/ML VL/or syr ONE (11:53)
[2025-03-02] MEDS ORDERED: SUGAMMADEX 200mg/2ml Vial (100MG/ML) IV ONE (11:54)
[2025-03-02] MEDS: BUPIVACAINE HCL 0.25% P/F 10 ML VIAL ONE (12:01)
[2025-03-02] MEDS: LIDOCAINE W/ EPINEPHRINE 1% 20ML VIAL ONE (12:02)
--- NOTE | 2025-03-02 12:54 | DVHOP ---
DATE OF SURGERY: 03/02/2025 PREOPERATIVE DIAGNOSIS: Cholelithiasis, cholecystitis. POSTOPERATIVE DIAGNOSIS: Cholelithiasis, cholecystitis. SURGEON: Sonido Regalado MD HOSPICE CLINICAL MANAGER: Wellington Germain NP ANESTHESIA: General endotracheal. PROCEDURE: Laparoscopy, laparoscopic cholecystectomy. DESCRIPTION OF PROCEDURE: Under general endotracheal anesthesia with the patient's skin prepped and draped, a supraumbilical incision was made and Veress needle inserted into the peritoneal cavity by the hanging drop technique in order to establish pneumoperitoneum to 15 mmHg pressure while insufflation with carbon dioxide. With the abdomen fully distended, the needle was removed and replaced with a 5 mm trocar port through which a 0-degree viewing laparoscope was inserted and under direct vision, an additional 5-mm port and 10 mm port were inserted through the right anterior axillary line at the level of the umbilicus and through the subxiphoid skin in the midline, respectively. Instrumentation was introduced and laparoscopy was performed revealing no obvious unexpected pathology on the serosal surfaces examined. The gallbladder was affected by chronic cholecystitis, was placed on tension. The cystic duct and cystic artery were identified, circumferentially dissected, traced into the hepatocystic triangle and skeletonized so as to minimize the potential for an inadvertent injury to the common bile duct. The cystic duct and cystic artery were then divided between metallic clips well away from the common duct again attempting to avoid injury to the common bile duct. Once the cystic duct and cystic artery were divided, the gallbladder was resected from its liver bed by electrocautery and traction and the fully mobilized gallbladder was removed from the peritoneal cavity through the subxiphoid 10 mm port site. The right upper quadrant was then irrigated. Irrigant was aspirated. Hemostasis was meticulously accomplished and found to be complete. At the termination of the procedure, there was no evidence of bleeding from either the port sites or from the gallbladder bed site. Instrumentation was then withdrawn. Pneumoperitoneum was evacuated. Wounds approximated using Monocryl sutures, Dermabond glue and Steri-Strips. The patient remained stable throughout the procedure, left the operating room following an accurate needle and sponge counts. The patient's family were thoroughly informed in the waiting area. Sonido Regalado MD PF/SANDEE TID: [id number] RECEIPT: [id number]
[2025-03-02 14:15] VITALS: BP 123/78; PULSE 64; RESP 18; TEMP 97.9; O2SAT 98
[2025-03-02] MEDS: ACETAMINOPHEN IV 1000 MG/100ML (10MG/ML) IV ONE (14:43)
[2025-03-02] MEDS: KETOROLAC TROMETH 30 MG/ML 1ML VIAL ONE (14:43)
[2025-03-02] MEDS: KETOROLAC TROMETH 30 MG/ML 1ML VIAL IV ONE (14:43)
[2025-03-02 17:00] VITALS: BP 106/77; PULSE 65; RESP 18; TEMP 97.4; O2SAT 94
--- NOTE | 2025-03-02 18:59 | DVHPNRES ---
Progress Note Date Seen: Mar 02, 2025 Resident Creating Document: MAITE GARCIA RESIDENT Medical Necessity Reason Pt with a Central, PICC or Fol: No Subjective Review of Systems Bri Roberson Is a 29-year-old female, with past medical history of prediabetes, migraine and anxiety. The patient came to [facility] with the chief complaint of 4 months of intermittent, RUQ abdominal pain. 5/10, colicky like, no irradiates, ni aggravates or alleviating factors. On the day of the admission 02/27/25, the patient report the abdominal pain worsen to 10/10 and it was associated with nausea, vomit 3 of gastric content, this prompted her visit to the ED. The patient denies fever, chills, diarrhea, melena, or other symptoms. On further questioning the patient reports she had have similar episodes of abdominal pain on and off for the last 4 months and has visited multiple hospitals wherein she was recommended surgery but she refused. In the ED the gall bladder ultrasound showed cholelithiasis and hepatic steatosis. Abdomen/pelvic CT showed no acute abdominal or pelvic findings.The patient was admitted for further diagnosed and management. Past medical history: prediabetes, migraine, anxiety Past surgical history: none Social & Personal history: lives at home with family, denies any smoking, alcohol and drugs Allergies: metoclopramide Hospital course: On 03/01/25- The patient was seen at bedside today. She stated that her pain had reduced since yesterday with the pain medication. She is scheduled for lap vs open cholecystectomy tomorrow. Family was called and given all updates. Patient complained of a headache for which she was given ibuprofen. On 03/02/25, The patient was examined and evaluated at bedside today. Vs, labs and chart was reviewed. The patient underwent to laparoscopy cholecystectomy this morning. Back from the recovery room, the patient reports abdominal pain 7/10, mild nausea, no vomit. Operative report showed: The gallbladder was affected by chronic cholecystitis. The patient continues with pain control measurements. LFTs and CBC has been requested. I have spoken with the patient and family, I have address all her questions and concerns. We will continue monitoring the progress of this patient. ROS: General: no dizzines, nause, fever or chills. Eyes: No Pain, No Vision change, No Conjunctivae inflammation, No Eyelid inflammation, No Redness ENT: No Ear pain, No Ear discharge, No Nose pain, No Nose discharge, No Nose congestion, No Mouth pain, No Mouth swelling, No Throat pain, No Throat swelling Cardiovascular: No Chest Pain, No Palpitations, No Orthopnea, No Paroxysmal No Dyspnea, No Edema, No Lt Headedness Respiratory: No Cough, No Dry, No Shortness of breath, No SOB with exertion, No Wheezing, No Hemoptysis, No Pleuritic Pain, No Sputum Gastrointestinal: Nausea and abdominal pain 10/31. No: Vomiting, No Diarrhea, No Constipation, No Melena, No Hematochezia Genitourinary: No Dysuria, No Frequency, No Incontinence, No Hematuria, No Retention Objective vital signs Vital Sign Date Time Temp Pulse Resp B/P (MAP) Pulse Ox O2 Delivery O2 Flow Rate FiO2 03/02/25 17:55 68 20 107/74 03/02/25 17:00 97.4 94 97.4 03/02/25 08:10 Room Air* 0 21 Total Intake and Output 03/01/25 03/01/25 03/02/25 15:00 23:00 07:00 Intake Total 450 ml 1650 ml 300 ml Balance 450 ml 1650 ml 300 ml medications Current Medications Medications Dose Ordered Sig/Denia Route Start Time Stop Time Status Last Admin Dose Admin Ondansetron HCl 4 mg Q4HP PRN IV 02/27/25 21:30 03/02/25 17:56 4 MG Pantoprazole Sodium 40 mg DAILY IV 02/28/25 10:00 03/02/25 14:57 40 MG Hydromorphone HCl 0.5 mg Q4HPRN PRN IV 02/27/25 21:30 03/02/25 17:08 0.5 MG Sodium Chloride 1,000 ml @ 75 mls/hr [id number] IV 02/28/25 09:00 03/02/25 14:58 75 MLS/HR Piperacillin Sod/ Tazobactam Sod 100 ml @ 25 mls/hr Q8HR IV 02/28/25 14:00 03/02/25 14:58 25 MLS/HR Patient Own Medication 75 mg DAILY@PRN PRN PO 02/28/25 18:45 Examination General Appearance: Status post cholecystectomy, Cooperative, in mild distress due to pain. Head Exam: Normal inspection Neck Exam: Normal inspection. Non-tender. Normal alignment Pulmonary/Respiratory: Chest non-tender. Clear bilateral breath sounds, no crackles, no wheezing. Cardiovascular/Chest: Regular rate and rhythm. No murmurs. No JVD. Peripheral Pulses: 2+ Radial (R). 2+ Radial (L). 2+ Pedal (R). 2+ Pedal (L) Abdominal Exam: With abdominal compression support. Active bowel sounds. Soft. mild tenderness. Ankle Exam: Negative ankle edema Lower extremities: Negative lower extremity edema Neuro/Mental Status: A&O x4. Coherent. Thoughts/Psych: Normal thought pattern. Appropriate mood and affect. Skin Exam: Normal inspection. Normal color. Warm. Dry laboratory and microbiology Laboratory Tests 03/02/25 05:14 Test 03/02/25 05:14 Range/Units Serum Glucose 79 74-106 mg/dL Microbiology Date/Time Source Procedure Growth Status 02/28/25 09:57 Nose MRSA Screen - Final Complete Problem List/Assessment/Plan Problem List/Assessment/Plan # Cholelithiasis with possible acute cholecystitis #Acute transamnitis #Acute intractable abdominal pain, likely due to above # Hepatic steatosis -Iv Zosyn 3.375 gm q8hr -IV fluids at 75ml/hr -Gall bladder US- showed cholelithiasis -Abdomen/pelvic CT- No acute abdominal or pelvic findings -HIDA scan- patent cystic duct -surgical consult- pending evaluation: -Status post cholecystectomy -Repeat LFTs: 03/03/25 #Possible pre-Diabetes HbA1C: pending result. Counseling about diet and healthy life styles Lipid panel #Obesity Class II BMI: 38.8 Counseling about diet and healthy life styles PUD prophylaxis: protonix 40mg iv daily DVT prophylaxis: ambulating, not indicated Diet: clear liquids, advanced per tolerance and surgical recommendation. Goals of care discussed with the patient > 35 min. Discussed plan of care with Dr. Contreras Code status: Full code PCP: Dr. Colon Plan discussed with: Patient and family, the patient agrees with the plan. Plan discussed with: Patient, Daughter, Other (partner) My Orders My Orders Orders - MAITE GARCIA RESIDENT Procedure Category Date Status Time Complete Blood Count LAB 03/03/25 Verified 04:00 Hepatic Panel LAB 03/03/25 Verified 04:00 Dietary Evaluation Review Comments: Nutrition Recommendation: 1) advance to low fat diet as medically feasible 2) Monitor NPO status, lab values, weight trend, and I/O Expected Outcomes/Goals: GI symptoms to improve Intake to meet >75% estimated needs FU 2-3 days Date of Service: Mar 02, 2025 Billing Provider: PRASHANT CONTRERAS MD Common Visit Codes: [id number] INP/OBS CARE(HIGH) MATIE GARCIA RESIDENT Mar 02, 2025 18:59
[2025-03-02 19:08] LABS: Triglycerides 56 mg/dL (< 150)
[2025-03-02 19:10] LABS: Cholesterol 98 mg/dL (< 200)
[2025-03-02 19:39] LABS: HDL Cholesterol 27 mg/dL (40-59)
[2025-03-02 21:00] VITALS: BP 101/62; PULSE 69; RESP 17; TEMP 97.7; O2SAT 95
[2025-03-03] VITALS (7 sets, daily range): BP systolic 93–117; BP diastolic 60–80; PULSE 61–71; RESP 18–19; TEMP 97.1–98.7; O2SAT 94–100
[2025-03-03] MEDS: ACETAMINOPHEN 325 MG TAB PO ONE (00:30)
[2025-03-03] MEDS: KETOROLAC TROMETH 30 MG/ML 1ML VIAL IV ONE (05:06)
[2025-03-03 07:03] LABS: Hematocrit 32.7 % (36.0-46.0); Hemoglobin 11.0 g/dL (12.2-16.2); Mean Corpuscular Hemoglobin 31.2 pg (28.0-32.0); Mean Corpuscular Volume 92.5 fL (80.0-100.0); Nucleated Red Blood Cells % 0.0 %
[2025-03-03 07:21] LABS: Alanine Aminotransferase 30 U/L (7-40); Anion Gap 10 (5-15); Calcium 8.8 mg/dL (8.7-10.4); Carbon Dioxide 24 mmol/L (20-31); Chloride 107 mmol/L (98-107); Potassium 3.8 mmol/L (3.5-5.1); Sodium 141 mmol/L (136-145)
[2025-03-03 07:22] LABS: Glucose 97 mg/dL (74-106); Total Protein 6.7 g/dL (5.7-8.2)
[2025-03-03 07:24] LABS: Albumin 3.7 g/dL (3.2-4.8)
[2025-03-03 07:28] LABS: BUN/Creatinine Ratio 9.4 (10.0-20.0); Bilirubin, Total 0.3 mg/dL (0.2-1.0); Blood Urea Nitrogen < 5 mg/dL (9-23)
[2025-03-03 07:33] LABS: Alkaline Phosphatase 66 U/L (46-116)
--- NOTE | 2025-03-03 07:56 | ECG ---
[facility] Test Date: 2025-02-28 Test Time: 07:15:08 Pat Name: MELINDA SANTOS Department: ER Room: 0216 A Gender: F [employer] Par[employer]: ARCHANA : 1995 Requested By: SKYLER YOU Order Number: [id number] Reading MD: Latrell Delgado Measurements Intervals Theresa Rate: 60 P: 34 MO: 144 QRS: -2 QRSD: 87 T: 8 QT: 423 QTc: 423 Interpretive Statements Incomplete analysis due to missing data in precordial lead(s) Sinus rhythm Missing lead(s): V4 Electronically Signed On 03-03-2025 10:55:39 PST by Latrell Delgado Please click the below link to view image of tracing.
[2025-03-03 08:09] LABS: Bilirubin, Direct 0.1 mg/dL (<0.3)
--- NOTE | 2025-03-03 10:02 | DVHPN2 ---
Subjective Date Seen: Mar 03, 2025 Post op day Post op day: 1 Patient reports: Other (pain , discomfort right side abdomen) General: Normal HNT: Normal Cardiovascular: Normal Respiratory: Normal Gastrointestinal: Abdominal Pain Genitourinary: Normal Objective Vitals Vital Sign Date Time Temp Pulse Resp B/P (MAP) Pulse Ox O2 Delivery O2 Flow Rate FiO2 03/03/25 08:30 98.7 71 18 108/72 (84) 96 98.7 03/02/25 20:00 Room Air* 0 21 Total Intake and Output 03/02/25 03/02/25 03/03/25 15:00 23:00 07:00 Intake Total 350 ml 400 ml 800 ml Balance 350 ml 400 ml 800 ml Medications Current Medications Medications Dose Ordered Sig/Denia Route Start Time Stop Time Status Last Admin Dose Admin Ondansetron HCl 4 mg Q4HP PRN IV 02/27/25 21:30 03/03/25 02:34 4 MG Pantoprazole Sodium 40 mg DAILY IV 02/28/25 10:00 03/03/25 09:43 40 MG Hydromorphone HCl 0.5 mg Q4HPRN PRN IV 02/27/25 21:30 03/03/25 02:33 0.5 MG Sodium Chloride 1,000 ml @ 75 mls/hr [id number] IV 02/28/25 09:00 03/03/25 04:22 75 MLS/HR Piperacillin Sod/ Tazobactam Sod 100 ml @ 25 mls/hr Q8HR IV 02/28/25 14:00 03/03/25 05:37 25 MLS/HR Patient Own Medication 75 mg DAILY@PRN PRN PO 02/28/25 18:45 Ketorolac Tromethamine 15 mg Q8HP PRN IV 03/03/25 06:30 03/08/25 06:29 General: Normal, Obese Head/Eyes: Normal ENT: Normal Neck: Normal, Supple Lungs: Normal, Normal inspection Cardiovascular: Normal, Regular rate and rhythm Abdominal: Soft Musculoskeletal: Normal, Full Range of Motion Extremities: Normal Skin: Normal, Normal inspection Neurological: Normal, CNII-XII Intact Labs and Microbiology Laboratory Tests 03/03/25 05:31 Test 03/03/25 05:31 Range/Units Serum Glucose 97 74-106 mg/dL Ass/Plan Labs and/or images reviewed: Labs reviewed by me, Image(s) reviewed by me Problem List # Cholelithiasis with possible acute cholecystitis #Acute transamnitis #Acute intractable abdominal pain, likely due to above # Hepatic steatosis -Iv Zosyn 3.375 gm q8hr -IV fluids at 75ml/hr -Gall bladder US- showed cholelithiasis -Abdomen/pelvic CT- No acute abdominal or pelvic findings -HIDA scan- patent cystic duct -surgical consult- pending evaluation: -Status post cholecystectomy -Repeat LFTs: 03/03/25 #Possible pre-Diabetes HbA1C: pending result. Counseling about diet and healthy life styles Lipid panel #Obesity Class II BMI: 38.8 Counseling about diet and healthy life styles PUD prophylaxis: protonix 40mg iv daily DVT prophylaxis: ambulating, not indicated Diet: clear liquids, advanced per tolerance and surgical recommendation. Goals of care discussed with the patient > 35 min. Discussed plan of care with Dr. Contreras Code status: Full code PCP: Dr. Colon Plan discussed with: Patient and family, the patient agrees with the plan. Assessment/Plan s/p laparoscopic cholecystectomy Complaints: - Describes abdominal pain primarily in the upper abdomen, characterized as sharp. - Reports significant hunger, having not eaten since Monday, which contributes to the abdominal pain. Rates the surgical pain and hunger pains as equally severe (50/50), causing "terrible" discomfort when combined. - Experiences some nausea, which is attributed to medication. - Reports a sharp pain with lateral movements, such as turning to the side. - Gastrointestinal: Reports some nausea after pain medication. Passing minimal flatus. Has not had a bowel movement post-operatively. Reports hunger pains. - General: Appears uncomfortable but alert and cooperative. - Abdomen: Abdomen is soft and non-distended. appropiatley tender to right side abdomen upon palpation, . Wounds are clean, dry, and intact with steri-strips in place. The abdominal binder is worn for comfort. Assessment: - Status post-laparoscopic cholecystectomy. Surgical recovery is proceeding as expected. Wounds are healing well. Abdominal pain is present, likely a combination of incisional pain, post-operative visceral discomfort, and hunger. Expresses hesitation about being discharged due to uncontrolled pain, lack of oral intake, and not having a bowel movement. Plan: ok to Discharge is from a surgical standpoint in 24 hours -advance diet as tolerated - Encouraged to ambulate frequently - Wound care instructions provided: steri-strips can get wet in the shower in two days. They will fall off on their own as the adhesive wears off. - Dietary counseling provided: advised to avoid spicy, greasy, and fatty foods initially to prevent diarrhea. A gradual reintroduction of these foods is recommended. - Advised that post-operative pain, especially on the right side and with movement, is normal and should resolve. - Instructed on signs and symptoms that warrant concern, including fever, chills, and nausea.. - Follow-up in the surgery clinic in two weeks. Prognosis: Excellent Plan discussed with patient, Dr. Regalado Visit Coding Surgery Date of Service if different f: Mar 03, 2025 Billing Provider: CHANDRIKA REGALADO MD Surgery Visit Codes: [id number] INP/OBS CARE(HIGH) MAGNOLIA MATHEW NP Mar 03, 2025 10:02
[2025-03-03] MEDS: KETOROLAC TROMETH 30 MG/ML 1ML VIAL IV PRN (14:06)
--- NOTE | 2025-03-03 16:43 | DVHPNRES ---
Progress Note Date Seen: Mar 03, 2025 Resident Creating Document: ELIOT WALTERS RESIDENT Medical Necessity Reason Pt with a Central, PICC or Fol: No Subjective Review of Systems Bri Lopez is a 29-year old female with past medical history of prediabetes, migraine and anxiety who came to the ED with the chief complaint of abdominal pain. The patient describes the pain as intense, localized to the right upper quadrant, rated as 10/10 in intensity, associated with nausea and 3 episodes of vomiting. Patient has had similar episodes of abdominal pain on and off for the last 4 months and has visited multiple hospitals wherein she was recommended surgery but she refused. Gall bladder ultrasound showed cholelithiasis and hepatic steatosis. Abdomen/pelvic CT showed no acute abdominal or pelvic findings. Past medical history: prediabetes, migraine, anxiety Past surgical history: none Social & Personal history: lives at home with family, denies any smoking, alcohol and drugs Allergies: metoclopramide Patient seen and examined at bedside. Patient is alert and oriented to time, place person and responding to all questions. Eyes: No Pain, No Vision change, No Conjunctivae inflammation, No Eyelid inflammation, No Redness ENT: No Ear pain, No Ear discharge, No Nose pain, No Nose discharge, No Nose congestion, No Mouth pain, No Mouth swelling, No Throat pain, No Throat swelling Cardiovascular: No Chest Pain, No Palpitations, No Orthopnea, No Paroxysmal No Dyspnea, No Edema, No Lt Headedness Respiratory: No Cough, No Dry, No Shortness of breath, No SOB with exertion, No Wheezing, No Hemoptysis, No Pleuritic Pain, No Sputum Gastrointestinal: Nausea, No Vomiting, Abdominal Pain, No Diarrhea, No Constipation, No Melena, No Hematochezia Genitourinary: No Dysuria, No Frequency, No Incontinence, No Hematuria, No Retention 03/01/25- The patient was seen at bedside today. She stated that her pain had reduced since yesterday with the pain medication. She is scheduled for lap vs open cholecystectomy tomorrow. Family was called and given all updates. Patient complained of a headache for which she was given ibuprofen. On 03/02/25, The patient was examined and evaluated at bedside today. Vs, labs and chart was reviewed. The patient underwent to laparoscopy cholecystectomy this morning. Back from the recovery room, the patient reports abdominal pain 7/10, mild nausea, no vomit. Operative report showed: The gallbladder was affected by chronic cholecystitis. The patient continues with pain control measurements. LFTs and CBC has been requested. I have spoken with the patient and family, I have address all her questions and concerns. We will continue monitoring the progress of this patient. 03/03/25- Patient was examined and evaluated at bedside today. Patient mentions she has mild abdominal tenderness. She is passing gas but has not had a bowel movement. She tolerated clear liquid diet and diet was advanced to full liquids. She was recommended to ambulate. All her questions and concerns were addressed. The patient is okay to be discharged in 24 hours per surgery and was asked to follow up with surgery in 2 weeks. Possible discharge tomorrow. Objective vital signs Vital Sign Date Time Temp Pulse Resp B/P (MAP) Pulse Ox O2 Delivery O2 Flow Rate FiO2 03/03/25 13:00 97.1 61 18 102/68 (79) 98 97.1 03/02/25 20:00 Room Air* 0 21 Total Intake and Output 03/02/25 03/02/25 03/03/25 15:00 23:00 07:00 Intake Total 350 ml 400 ml 800 ml Balance 350 ml 400 ml 800 ml medications Current Medications Medications Dose Ordered Sig/Denia Route Start Time Stop Time Status Last Admin Dose Admin Ondansetron HCl 4 mg Q4HP PRN IV 02/27/25 21:30 03/03/25 02:34 4 MG Pantoprazole Sodium 40 mg DAILY IV 02/28/25 10:00 03/03/25 09:43 40 MG Hydromorphone HCl 0.5 mg Q4HPRN PRN IV 02/27/25 21:30 03/03/25 02:33 0.5 MG Sodium Chloride 1,000 ml @ 75 mls/hr [id number] IV 02/28/25 09:00 03/03/25 04:22 75 MLS/HR Piperacillin Sod/ Tazobactam Sod 100 ml @ 25 mls/hr Q8HR IV 02/28/25 14:00 03/03/25 14:06 25 MLS/HR Patient Own Medication 75 mg DAILY@PRN PRN PO 02/28/25 18:45 Ketorolac Tromethamine 15 mg Q8HP PRN IV 03/03/25 06:30 03/08/25 06:29 03/03/25 14:06 15 MG Examination General Appearance: Cooperative. Well developed. Well nourished. NAD Head Exam: Normal inspection Neck Exam: Normal inspection. Non-tender. Normal alignment Pulmonary/Respiratory: Chest non-tender. Clear bilateral breath sounds, no crackles, no wheezing. Cardiovascular/Chest: Regular rate and rhythm. No murmurs. No JVD. Peripheral Pulses: 2+ Radial (R). 2+ Radial (L). 2+ Pedal (R). 2+ Pedal (L) Abdominal Exam: Normal bowel sounds. Soft. normal abdomen, no visible veins, mild tenderness all over abdomen,abdominal binder in place, No hepatosplenomegaly, No masses Ankle Exam: Negative ankle edema Lower extremities: Negative lower extremity edema Neuro/Mental Status: A&O x4. Coherent. Thoughts/Psych: Normal thought pattern. Appropriate mood and affect. Good judgement and insight Skin Exam: Normal inspection. Normal color. Warm. Dry laboratory and microbiology Laboratory Tests 03/03/25 05:31 Test 03/03/25 05:31 Range/Units Serum Glucose 97 74-106 mg/dL Microbiology Date/Time Source Procedure Growth Status 02/28/25 09:57 Nose MRSA Screen - Final Complete Labs and/or images reviewed: Labs reviewed by me, Image(s) reviewed by me Problem List/Assessment/Plan Problem List/Assessment/Plan # Cholelithiasis with possible acute cholecystitis s/p lap cholecystectomy day 1 #Acute transamnitis #Acute intractable abdominal pain, likely due to above # Hepatic steatosis -clear liquids today, keep NPO after midnight -IV Zosyn 3.375 gm q8hr -IV fluids at 75ml/hr -Gall bladder US- showed cholelithiasis -Abdomen/pelvic CT- No acute abdominal or pelvic findings -HIDA scan- patent cystic duct -surgical consult- okay to discharge in 24 hours per surgery, follow up in surgery outpatient clinic in 2 weeks #Possible pre-Diabetes,ruled out -HbA1C: 4.8 -Counseling about dietary modification and healthy life style # Migraine headache -continue home medication Nurtec 75mg po prn #Obesity Class II -BMI: 38.8 -Counseling about diet and healthy life styles PUD prophylaxis: protonix 40mg iv daily DVT prophylaxis: ambulating, not indicated Goals of care: Full code, discussed for 23 minutes Plan discussed with patient Plan discussed with Dr Cohen Plan discussed with: Patient My Orders My Orders Orders - ELIOT WALTERS RESIDENT Procedure Category Date Status Time Ketorolac Injection PHA 03/03/25 In Process (Toradol Injection) 06:30 Dietary Evaluation Review Comments: Nutrition Recommendation: 1) advance to low fat diet as medically feasible 2) Monitor NPO status, lab values, weight trend, and I/O Expected Outcomes/Goals: GI symptoms to improve Intake to meet >75% estimated needs FU 2-3 days Date of Service: Mar 03, 2025 Billing Provider: PRASHANT COHEN MD Common Visit Codes: [id number] INP/OBS CARE(HIGH) ELIOT WALTERS RESIDENT Mar 03, 2025 16:42
[2025-03-04 01:00] VITALS: BP 114/69; PULSE 70; RESP 18; TEMP 97.5; O2SAT 98
[2025-03-04 05:00] VITALS: BP 103/66; PULSE 58; RESP 18; TEMP 97.8; O2SAT 97
[2025-03-04 08:00] VITALS: PULSE 61; RESP 18
[2025-03-04 09:00] VITALS: BP 109/77; PULSE 60; RESP 17; TEMP 97.6; O2SAT 98
[2025-03-04] MEDS ORDERED: TRAM-626 PO (10:23)
--- NOTE | 2025-03-04 11:57 | DVHPN2 ---
Progress Note Date Seen: Mar 04, 2025 Medical Necessity Reason Pt with a Central, PICC or Fol: No Objective vital signs Vital Sign Date Time Temp Pulse Resp B/P (MAP) Pulse Ox O2 Delivery O2 Flow Rate FiO2 03/04/25 09:00 97.6 60 17 109/77 (88) 98 97.6 03/03/25 19:49 Room Air* 0 21 Total Intake and Output 03/03/25 03/03/25 03/04/25 15:00 23:00 07:00 Intake Total 100 ml 650 ml 1000 ml Balance 100 ml 650 ml 1000 ml medications Current Medications Medications Dose Ordered Sig/Denia Route Start Time Stop Time Status Last Admin Dose Admin Ondansetron HCl 4 mg Q4HP PRN IV 02/27/25 21:30 03/03/25 02:34 4 MG Pantoprazole Sodium 40 mg DAILY IV 02/28/25 10:00 03/04/25 10:10 40 MG Hydromorphone HCl 0.5 mg Q4HPRN PRN IV 02/27/25 21:30 03/03/25 02:33 0.5 MG Sodium Chloride 1,000 ml @ 75 mls/hr [id number] IV 02/28/25 09:00 03/04/25 06:00 75 MLS/HR Piperacillin Sod/ Tazobactam Sod 100 ml @ 25 mls/hr Q8HR IV 02/28/25 14:00 03/04/25 05:40 25 MLS/HR Patient Own Medication 75 mg DAILY@PRN PRN PO 02/28/25 18:45 Ketorolac Tromethamine 15 mg Q8HP PRN IV 03/03/25 06:30 03/08/25 06:29 03/04/25 01:51 15 MG laboratory and microbiology Laboratory Tests 03/03/25 05:31 Test 03/03/25 05:31 Range/Units Serum Glucose 97 74-106 mg/dL Problem List/Assessment/Plan Problem List/Assessment/Plan 03/04/25 doing well, tolerating po intake, normal bowel and bladder function, cleared for discharge, wounds clean and well approximated Plan discussed with: Patient Dietary Evaluation Review Comments: Nutrition Recommendation: 1) advance to low fat diet as medically feasible 2) Monitor NPO status, lab values, weight trend, and I/O Expected Outcomes/Goals: GI symptoms to improve Intake to meet >75% estimated needs FU 2-3 days CHANDRIKA VILLALOBOS MD Mar 04, 2025 11:57
[2025-03-04 13:00] VITALS: BP 125/87; PULSE 61; RESP 18; TEMP 97.6; O2SAT 97
--- NOTE | 2025-03-04 14:45 | DVHDSRES ---
Discharge Summary Date of Admission Resident Creating Document: ELIOT WALTERS RESIDENT Feb 27, 2025 at 21:16 Date of Discharge: Mar 04, 2025 Admitting Diagnosis Cholelithiasis Labs/Diagnostic Data: Laboratory Results Test 03/03/25 05:31 03/02/25 05:14 02/28/25 03:32 02/27/25 21:48 White Blood Count 9.5 10^3/uL (4.4-10.8) Red Blood Count 3.54 10^6/uL (4.0-5.20) Hemoglobin 11.0 g/dL (12.2-16.2) Hematocrit 32.7 % (36.0-46.0) Mean Corpuscular Volume 92.5 fL (80.0-100.0) Mean Corpuscular Hemoglobin 31.2 pg (28.0-32.0) Mean Corpuscular Hemoglobin Concent 33.7 g/dL (32.0-36.0) Red Cell Distribution Width 13.1 % (11.8-14.3) Platelet Count 251 10^3/uL (140-450) Mean Platelet Volume 10.4 fL (6.9-10.8) Neutrophils (%) (Auto) 76.7 % (37.0-80.0) Lymphocytes (%) (Auto) 14.1 % (10.0-50.0) Monocytes (%) (Auto) 9.1 % (0.0-12.0) Eosinophils (%) (Auto) 0.0 % (0.0-7.0) Basophils (%) (Auto) 0.1 % (0.0-2.0) Neutrophils # (Auto) 7.3 10 ^3/uL (1.6-8.6) Lymphocytes # (Auto) 1.3 10 ^3/uL (0.4-5.4) Monocytes # (Auto) 0.9 10 ^3/uL (0-1.3) Eosinophils # (Auto) 0 10 ^3/uL (0-0.8) Basophils # (Auto) 0 10 ^3/uL (0-0.2) Nucleated Red Blood Cells 0.0 % Sodium Level 141 mmol/L (136-145) Potassium Level 3.8 mmol/L (3.5-5.1) Chloride Level 107 mmol/L (98-107) Carbon Dioxide Level 24 mmol/L (20-31) Anion Gap 10 (5-15) Blood Urea Nitrogen < 5 mg/dL (9-23) Creatinine 0.53 mg/dL (0.550-1.02) Glomerular Filtration Rate Calc 127 mL/min (>90) BUN/Creatinine Ratio 9.4 (10.0-20.0) Serum Glucose 97 mg/dL (74-106) Calcium Level 8.8 mg/dL (8.7-10.4) Total Bilirubin 0.3 mg/dL (0.2-1.0) Direct Bilirubin 0.1 mg/dL (<0.3) Aspartate Amino Transferase (AST) 30 U/L (13-40) Alanine Aminotransferase (ALT) 30 U/L (7-40) Alkaline Phosphatase 66 U/L (46-116) Total Protein 6.7 g/dL (5.7-8.2) Albumin 3.7 g/dL (3.2-4.8) Hemoglobin A1c 4.8 % A1C (<5.7) Triglycerides Level 56 mg/dL (< 150) Cholesterol Level 98 mg/dL (< 200) LDL Cholesterol 63 mg/dL (< 100) HDL Cholesterol 27 mg/dL (40-59) Vitamin B12 Level 623 pg/mL (211-911) Vitamin D 25-Hydroxy 45.9 ng/mL (30.0-100) Thyroid Stimulating Hormone (TSH) 1.92 uIU/mL (0.55-4.78) Prothrombin Time 11.3 sec (9.3-11.8) Prothrombin Time INR 1.07 (0.9-1.15) Activated Partial Thromboplast Time 28.9 SEC (24.5-34.5) Test 02/27/25 20:38 02/27/25 16:43 Urine Color Yellow (Yellow) Urine Clarity Clear (Clear) Urine pH 7.0 (5.0-9.0) Urine Specific [place] 1.013 (1.001-1.035) Urine Protein Negative (Negative) Urine Ketones Trace (Negative) Urine Blood Negative /uL (Negative) Urine Nitrite Negative (Negative) Urine Bilirubin Negative (Negative) Urine Urobilinogen 8 mg/dL (Negative) Urine Leukocyte Esterase Negative /uL (Negative) Urine RBC 3 /hpf (0 - 4) Urine Microscopic WBC 2 /HPF (0-5) Urine Squamous Epithelial Cells Few /hpf (<5) Urine Bacteria Few /hpf (None Seen) Urine Mucus Few (None Seen) Urine Glucose Normal mg/dL (Normal) Urine Opiates Screen Neg (NEGATIVE) Urine Fentanyl Screen Pos (NEGATIVE) Urine Barbiturates Screen Neg (NEGATIVE) Urine Phencyclidine Screen Neg (NEGATIVE) Urine Amphetamines Screen Neg (NEGATIVE) Urine Benzodiazepines Screen Neg (NEGATIVE) Urine Cocaine Screen Neg (NEGATIVE) Urine Cannabinoids Screen Neg (NEGATIVE) Magnesium Level 1.9 mg/dL (1.6-2.6) Lipase 39 U/L (12-53) Beta HCG, Quantitative 0.9 mIU/mL (1.5-4.2) Other Laboratory Tests 03/03/25 05:31 Brief Hx & Hospital Course: Bri Lopez is a 29-year old female with past medical history of prediabetes, migraine and anxiety who came to the ED with the chief complaint of abdominal pain which she described as intense, localized to the right upper quadrant, rated as 10/10 in intensity, associated with nausea and 3 episodes of vomiting. Patient has had similar episodes of abdominal pain on and off for the last 4 months and has visited multiple hospitals wherein she was recommended surgery but she refused. Gall bladder ultrasound showed cholelithiasis and hepatic steatosis. Abdomen/pelvic CT showed no acute abdominal or pelvic findings. HIDA scan showed patent cystic duct. The patient underwent laparoscopic cholecystectomy on 03/02/2025 with an uncomplicated perioperative course. Patient reported passing gas and had 1 bowel movement after the surgery. Her diet was slowly advanced from clear liquids to mechanical soft diet which she tolerated well. Patient was ambulating well post procedure. She was extensively counseled about healthy lifestyle modifications and given dietary recommendations, and she demonstrated understanding of the same. She was discharged home in a stable condition on tylenol and toradol, after clearance from surgery. She was asked to follow-up in [facility] clinic within 7 days and with surgery outpatient in 2 weeks. Past medical history: prediabetes, migraine, anxiety Past surgical history: none Social & Personal history: lives at home with family, denies any smoking, alcohol and drugs Allergies: metoclopramide General Appearance: Cooperative. Well developed. Well nourished. NAD Head Exam: Normal inspection Neck Exam: Normal inspection. Non-tender. Normal alignment Pulmonary/Respiratory: Chest non-tender. Clear bilateral breath sounds, no crackles, no wheezing. Cardiovascular/Chest: Regular rate and rhythm. No murmurs. No JVD. Peripheral Pulses: 2+ Radial (R). 2+ Radial (L). 2+ Pedal (R). 2+ Pedal (L) Abdominal Exam: Normal bowel sounds. Soft. normal abdomen, no visible veins, mild tenderness all over abdomen,abdominal binder in place, wounds clean and well approximated, No hepatosplenomegaly, No masses Ankle Exam: Negative ankle edema Lower extremities: Negative lower extremity edema Neuro/Mental Status: A&O x4. Coherent. Thoughts/Psych: Normal thought pattern. Appropriate mood and affect. Good judgement and insight Skin Exam: Normal inspection. Normal color. Warm. Dry Operations or Procedures 1.PROCEDURE(s): GBUS - GALLBLADDER REASON: pain ORDER NUMBER(s): [id number], ACCESSION NUMBER(s): [id number] INDICATION: pain TECHNIQUE: Multiple real-time sonographic images of the abdomen were obtained. COMPARISON: US ABDOMEN LIMITED on DOS: 02/20/25, US GALLBLADDER on DOS: 11/23/24 FINDINGS: The liver is homogenous demonstrates echogenicity consistent with steatosis.. The liver measures 15.69 cm. No intrahepatic biliary ductal dilatation is noted. Hepatopetal portal flow The gallbladder wall measures 0.16 cm and is unremarkable. Gallstones noted in the gallbladder.. The common duct measures 0.43 cm and is unremarkable. No pericholecystic fluid is noted. Negative sonographic Salas's sign The right kidney measures 10.74 cm. No hydronephrosis. The pancreas is not well visualized due to obscuration from bowel gas. The visualized portions of the IVC and aorta are grossly unremarkable. IMPRESSION: 1. Cholelithiasis and negative ultrasonic salas's sign. 2. Liver measures 15.7 cm in length with parenchymal changes consistent with steatosis. 3. Right kidney appears normal. 2.PROCEDURE(s): ABPL - CT AB PEL WO CON-NO ORAL OR IV REASON: cholelithiasis ORDER NUMBER(s): [id number], ACCESSION NUMBER(s): [id number] Exam: CT CT AB PEL WO CON-NO ORAL OR IV History: cholelithiasis Comparison Study: CT CT AB PEL WO CON-NO ORAL OR IV on DOS: 11/23/24 Technique: Multidetector spiral CT of the abdomen was performed from lung bases to pubic symphysis. Imaging was performed without IV contrast. Axial, coronal and sagittal multiplanar reformats were obtained from the axial data set by the technologist. Radiation Dose : 1. Abdomen/Pelvis: CTDIvol 22.8 mGy, DLP 1450.12 mGy*cm. Findings: Evaluation of solid organs is limited due to lack of intravenous contrast use. Lung Bases: No acute or significant lung base finding. Normal heart size. No pleural or pericardial effusion. Liver: The liver is normal in size. No focal lesions. Gallbladder and Biliary Tree: Unremarkable Spleen: Unremarkable Pancreas: The pancreas is grossly normal in appearance. Adrenal Glands: Unremarkable Kidneys: Kidneys are grossly normal without calculi or hydronephrosis. Bladder: Grossly unremarkable for degree of distention. Bowel: The stomach is grossly normal in appearance. Small bowel and colon are normal in caliber and distribution. Normal appendix is visualized in the right lower quadrant without findings of appendicitis. Ascites: Absent Lymphadenopathy: No mesenteric, retroperitoneal or periportal lymphadenopathy. Abdominal Wall and Mesentery: Unremarkable. Vasculature: The visualized abdominal aorta is normal in size and caliber. Evaluation of abdominal and pelvic vessels is limited due to lack of intravenous contrast. Pelvic Organs: Unremarkable Musculoskeletal: No aggressive focal bony lesions, acute fractures or dislocation. IMPRESSION: No acute abdominal or pelvic findings. Radiation optimization: All CT scans at this facility use at least one of these dose optimization techniques: automated exposure control mA and/or kV adjustment per patient size (includes targeted exams where dose is matched to clinical indication) or iterative reconstruction. 3.PROCEDURE(s): CXR1 - CHEST XRAY 1 VIEW REASON: chest pain ORDER NUMBER(s): [id number], ACCESSION NUMBER(s): [id number] CHEST RADIOGRAPH Indication: chest pain Technique: Single frontal view of the chest was obtained COMPARISON: CT CT AB PEL WO CON-NO ORAL OR IV on DOS: 02/27/25, US GALLBLADDER on DOS: 02/27/25, US ABDOMEN LIMITED on DOS: 02/20/25, US GALLBLADDER on DOS: 11/23/24, CT CT AB PEL WO CON-NO ORAL OR IV on DOS: 11/23/24 FINDINGS: Lungs and pleural spaces are clear. Cardiac silhouette and claudia are within normal limits. Bones and soft tissues demonstrate no significant abnormality. IMPRESSION: No acute disease. 4.PROCEDURE(s): [facility] - NM HIDA SCAN REASON: Rule out cholecystitis ORDER NUMBER(s): [id number], ACCESSION NUMBER(s): [id number] Procedure: NM NM HIDA SCAN Exam Date: 02/28/2025 08:34 AM Clinical History: Rule out cholecystitis Comparison Study: None Nuclear Medicine Hepatobiliary Scan. Technique: Following the intravenous administration of 4.1 mCi of technetium 99m labeled Choletec multiple planar abdominal planar images were obtained in anterior projection in 1 minute intervals for 43 minutes . Right lateral images were obtained at 45 minutes after injection. Findings: The liver appears grossly normal in size. There is no abnormal persistence of the cardiac or blood pool activity. There is prompt visualization of the gallbladder and excretion of activity into the small bowel. Impression: Patent cystic duct. 5.OPERATIVE REPORT Patient: BRI CHAVIS Acct: [id number] : 1995 Loc: [place] Age/Sex: 29/F Room: [facility] [place][note 3]6 / Bed: A Attending Phy: ELIOT WALTERS DATE OF SURGERY: 03/02/2025 PREOPERATIVE DIAGNOSIS: Cholelithiasis, cholecystitis. POSTOPERATIVE DIAGNOSIS: Cholelithiasis, cholecystitis. SURGEON: Sonido Regalado MD INDUSTRIAL HYGIENE MANAGER: Wellington Germain NP ANESTHESIA: General endotracheal. PROCEDURE: Laparoscopy, laparoscopic cholecystectomy. DESCRIPTION OF PROCEDURE: Under general endotracheal anesthesia with the patient's skin prepped and draped, a supraumbilical incision was made and Veress needle inserted into the peritoneal cavity by the hanging drop technique in order to establish pneumoperitoneum to 15 mmHg pressure while insufflation with carbon dioxide. With the abdomen fully distended, the needle was removed and replaced with a 5 mm trocar port through which a 0-degree viewing laparoscope was inserted and under direct vision, an additional 5-mm port and 10 mm port were inserted through the right anterior axillary line at the level of the umbilicus and through the subxiphoid skin in the midline, respectively. Instrumentation was introduced and laparoscopy was performed revealing no obvious unexpected pathology on the serosal surfaces examined. The gallbladder was affected by chronic cholecystitis, was placed on tension. The cystic duct and cystic artery were identified, circumferentially dissected, traced into the hepatocystic triangle and skeletonized so as to minimize the potential for an inadvertent injury to the common bile duct. The cystic duct and cystic artery were then divided between metallic clips well away from the common duct again attempting to avoid injury to the common bile duct. Once the cystic duct and cystic artery were divided, the gallbladder was resected from its liver bed by electrocautery and traction and the fully mobilized gallbladder was removed from the peritoneal cavity through the subxiphoid 10 mm port site. The right upper quadrant was then irrigated. Irrigant was aspirated. Hemostasis was meticulously accomplished and found to be complete. At the termination of the procedure, there was no evidence of bleeding from either the port sites or from the gallbladder bed site. Instrumentation was then withdrawn. Pneumoperitoneum was evacuated. Wounds approximated using Monocryl sutures, Dermabond glue and Steri-Strips. The patient remained stable throughout the procedure, left the operating room following an accurate needle and sponge counts. The patient's family were thoroughly informed in the waiting area. Sonido Regalado MD Condition at Discharge: Fair Final Diagnosis/Problems List Cholelithiasis with possible acute cholecystitis, ruled out s/p lap cholecystectomy Acute transamnitis Acute intractable abdominal pain, likely due to above Hepatic steatosis Possible pre-diabetes,ruled out Migraine headache Obesity Class II Discharge Disposition: Home Discharge Instruct/Medications Diet: Regular Activity: No Restrictions, As Tolerated Medications: tyelonol 500 mg prn for 5 days tramadol 50mg po q8hrs for 5 days Scheduled Acetaminophen (Tylenol Extra Strength), 500 MG PO DAILY, (Reported) Sumatriptan Succinate (Imitrex), 50 MG PO DAILY, (Reported) Tirzepatide (Zepbound), 2.5 MG SC DAILY, (Reported) Scheduled PRN Rimegepant Sulfate (Nurtec), 75 MG PO for FOR HEADACHE, (Reported) Tramadol HCl (Tramadol HCl), 50 MG PO Q8HPRN PRN, (Reported) Discontinued Medications Dicyclomine Hcl (Bentyl Capsule), 1 CAP PO DAILY, (Reported) Lorazepam (Ativan Tablet), 1 TAB PO DAILY, (Reported) Nitrofurantoin Monohydrate Mac (Macrobid), 100 MG PO BID Ondansetron Odt 4MG Tab (Zofran Po), 4 MG PO Q8HPRN PRN Discharge Statement: "Patient was advised to return to the ER or call 911 if any headaches, dizziness, shortness of breath, chest pain, abdominal pain, bleeding, fevers, or worsening of medical condition. Patient was counseled about treatment plan, medications, possible side effects, patientverbalized understanding. All questions were answered to the best of my ability. This discharge took greater then 30 minutes in planning, reviewing documentation, counseling the patient, and discussing with other team members." ASSESSMENT ASSESSMENT Assessment acute cholecystitis s/p lap cholecystectomy Date of Service: Mar 04, 2025 Billing Provider: PRASHANT COHEN MD Common Visit Codes: 36997-ZOL/OBS DISCH DAY >30min ELIOT WALTERS RESIDENT Mar 04, 2025 14:45
== END 2025-03-04 14:46 | disposition home or self-care (01) | DRG 263 ==
LOC: EDUNIT# 15:56 → EDBD 15:56 → ER 16:01 → OVERFLOW 21:16 → CENTRAL 02-28 22:11
PROVIDERS: ADMIT Internal Medicine; ATTEND Internal Medicine
PROC: 0FT44ZZ Resection of Gallbladder, Percutaneous Endoscopic Approach (ICD-10-PCS; principal; 2025-03-02 11:30)
DX: K80.00 Calculus of gallbladder with acute cholecystitis without obstruction (principal); R71.0 Precipitous drop in hematocrit; E11.9 Type 2 diabetes mellitus without complications; I10 Essential (primary) hypertension; Z68.34 Body mass index [BMI] 34.0-34.9, adult; K76.0 Fatty (change of) liver, not elsewhere classified; G43.909 Migraine, unspecified, not intractable, without status migrainosus; E66.812 Obesity, class 2; F41.9 Anxiety disorder, unspecified; Z83.3 Family history of diabetes mellitus; Z80.3 Family history of malignant neoplasm of breast; Z82.49 Family history of ischemic heart disease and other diseases of the circulatory system; Z82.5 Family history of asthma and other chronic lower respiratory diseases; Z63.72 Alcoholism and drug addiction in family; Z88.8 Allergy status to other drugs, medicaments and biological substances; Z79.899 Other long term (current) drug therapy
CPT/HCPCS: 36415; 71045; 74176; 76705; 78226; 80048; 80053; 80061; 80307; 81001; 82248; 82306; 82607; 83036; 83690; 83735; 84443; 84702; 85025; 85610; 85730; 86850; 86900; 86901; 87081; 93005; 96361; 96374; 96375; G0378; J0131; J0690; J1100; J1885; J2250; J2405; J2470; J2543; J2704; J3490

== ENCOUNTER 2025-03-07 10:48 | Outpatient (CLI) | payer MEDICAID ==
[~2025-03-07 10:48] MED LIST changes: +ACET-1304 PO; -NITR-87 PO; +RIME75TA PO; +SUMA50TA2 PO; +TIRZ2.5I2 SC; +TRAM-626 PO; -ZOFR4T PO
[2025-03-07 11:11] LABS: Hematocrit 37.6 % (36.0-46.0); Hemoglobin 12.6 g/dL (12.2-16.2); Mean Corpuscular Hemoglobin 31.0 pg (28.0-32.0); Mean Corpuscular Volume 92.3 fL (80.0-100.0); Nucleated Red Blood Cells % 0.0 %
== END 2025-03-10 17:00 | disposition home or self-care (01) ==
LOC: LAB 10:48
PROVIDERS: ATTEND Student in an Organized Health Care Education/Training Program
DX: Z48.89 Encounter for other specified surgical aftercare (principal)
CPT/HCPCS: 36415; 85025